=== PATIENT | female | born 1950 | race Caucasian/White ===

== ENCOUNTER → 2016-12-27 | Outpatient (CLI) | payer OTHER ==
[~2016-12-27] MED LIST: Albuterol 0.083% 2.5 MG/3 ML Neb Soln NEB ONE
== END | disposition home or self-care (01) ==
LOC: MW.RT 14:01
PROVIDERS: ATTEND Internal Medicine
DX: J44.9 Chronic obstructive pulmonary disease, unspecified (principal)
CPT/HCPCS: 94060; 94729

== ENCOUNTER 2018-02-22 21:58 | Emergency (ER) | payer MEDICARE, MEDICAID ==
[2018-02-22 22:35] VITALS: BP 128/68
--- NOTE | 2018-02-22 22:56 | EDM.PDOC ---
ED HPI GENERAL MEDICAL PROBLEM - General Chief Complaint: Back Pain or Injury Stated Complaint: SCIATIC NERVE PAIN Time Seen by Provider: 02/22/18 22:47 - History of Present Illness INITIAL COMMENTS - FREE TEXT/NARRATIVE: HISTORY AND PHYSICAL: History of present illness: Patient is a 68 show female history of sciatica presents a concern of right sided sciatic pain she denies trauma or other concern she did see her doctor for this earlier today who prescribed hydrocodone she presents today requesting diclofenac which worked with a prior episode. She denies numbness weakness inconsequential bowel or bladder trauma or other concern Review of systems: As per history of present illness and below otherwise all systems reviewed and negative. Past medical history: As per history of present illness and as reviewed below otherwise noncontributory. Surgical history: As per history of present illness and as reviewed below otherwise noncontributory. Social history: No reported history of drug or alcohol abuse. Family history: As per history of present illness and as reviewed below otherwise noncontributory. Physical exam: HEENT: Atraumatic, normocephalic, pupils reactive, negative for conjunctival pallor or scleral icterus, mucous membranes moist, throat clear, neck supple, nontender, trachea midline. Lungs: Clear to auscultation, breath sounds equal bilaterally, chest nontender. Heart: S1S2, regular, negative for clicks, rubs, or JVD. Abdomen: Soft, nondistended, nontender. Negative for masses or hepatosplenomegaly. Negative for costovertebral tenderness. Pelvis: Stable nontender. 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: Deferred. Rectal: Deferred. Extremities: Atraumatic, negative for cords or calf pain. Neurovascular unremarkable. Neuro: Awake, alert, oriented. Cranial nerves II through XII unremarkable. Cerebellum unremarkable. Motor and sensory unremarkable throughout. Exam nonfocal. Back: Patient has pain over her right sciatic notch she is able Sanner tells back on her heels deep tendon reflexes motor and sensory are normal Diagnostics: None Therapeutics: None Impression: # 1 sciatica Definitive disposition and diagnosis as appropriate pending reevaluation and review of above. lower back Pain Score (Numeric/FACES): 8 - Related Data Allergies Allergy/AdvReac Type Severity Reaction Status Date / Time egg Allergy Fever Verified 02/22/18 22:33 Home Meds: Home Meds guaiFENesin [Mucinex] 600 mg PO ASDIRECTED PRN 06/07/15 [History] Hydrocodone/Acetaminophen [Hydrocodon-Acetaminophen 5-325] 1 each PO Q6HR PRN [History] Past Medical History - Past Health History Medical/Surgical History: Denies Medical/Surgical History Other Respiratory History: Chronic coughin r/t smoking - Past Surgical History Other Female Surgeries/Procedures: ovarian cyst removal Social & Family History - Caffeine Use Caffeine Use: Reports: Coffee, Soda ED ROS GENERAL - Review of Systems Review Of Systems: ROS reveals no pertinent complaints other than HPI. ED EXAM, GENERAL - Physical Exam Exam: See Below (See dictation) Course - Vital Signs Last Recorded V/S: Last Vital Signs Temp 36.2 C 02/22/18 22:33 Pulse 75 02/22/18 22:33 Resp 18 02/22/18 22:33 BP 128/68 02/22/18 22:33 Pulse Ox 94 L 02/22/18 22:33 Departure - Departure Time of Disposition: 22:54 Disposition: Home, Self-Care 01 Condition: Good Clinical Impression: Sciatica - Discharge Information Referrals: Rocky Mitchell MD [Primary Care Provider] - Additional Instructions: The following information is given to patients seen in the emergency department who are being discharged to home. This information is to outline your options for follow-up care. We provide all patients seen in our emergency department with a follow-up referral. The need for follow-up, as well as the timing and circumstances, are variable depending upon the specifics of your emergency department visit. If you don't have a primary care physician on staff, we will provide you with a referral. We always advise you to contact your personal physician following an emergency department visit to inform them of the circumstance of the visit and for follow-up with them and/or the need for any referrals to a consulting specialist. The emergency department will also refer you to a specialist when appropriate. This referral assures that you have the opportunity for followup care with a specialist. All of these measure are taken in an effort to provide you with optimal care, which includes your followup. Under all circumstances we always encourage you to contact your private physician who remains a resource for coordinating your care. When calling for followup care, please make the office aware that this follow-up is from your recent emergency room visit. If for any reason you are refused follow-up, please contact the [facility] emergency department at and asked to speak to the emergency department charge nurse. Diclofenac as prescribed follow-up primary medical doctor return as needed as discussed
== END 2018-02-22 23:22 | disposition home or self-care (01) ==
LOC: MW.ED 21:58
DX: M54.41 Lumbago with sciatica, right side (principal); Z91.012 Allergy to eggs
CPT/HCPCS: 99282; 99283

== ENCOUNTER 2019-04-16 21:18 | Emergency (ER) | payer MEDICARE, MEDICAID ==
[2019-04-16 21:38] VITALS: BP 179/74; PULSE 74
[2019-04-16] MEDS ORDERED: Diazepam 2 MG Tab PO ONE (21:43)
[2019-04-16] MEDS ORDERED: Ketorolac 60 MG/2 ML SDV IM ONE (21:43)
--- NOTE | 2019-04-16 21:46 | EDM.PDOC ---
ED HPI GENERAL MEDICAL PROBLEM - General Chief Complaint: Back Pain or Injury Stated Complaint: PT HAS NERVE PAIN Time Seen by Provider: 04/16/19 21:32 - History of Present Illness INITIAL COMMENTS - FREE TEXT/NARRATIVE: HISTORY AND PHYSICAL: History of present illness: The patient is a 69-year-old female who has a history of episodic sciatic pain on the right and was last seen here on February 22, 2018 for similar symptoms and says that she has had on and off episodes and flareups for which she has used diclofenac and presents today with an exacerbation. She denies any recent trauma but does say that she frequently will do a lot of driving which may or may not have aggravated this. The pain is located in her right buttock area and radiates to her right upper leg but she has no weakness numbness or tingling in her legs and no midline back pain. She has no urinary frequency urgency or hematuria and no flank pain. She's had no bowel or bladder disturbances. The patient said that she got a refill on her diclofenac which has worked in the past and she took one dose today but it did not help so she is here for evaluation. She follows with Dr. Mitchell at [facility] and she has never had a lengthy discussion about her sciatica with him but says that she will do so tomorrow. She has no left-sided pain and no other systemic complaints. Is experiencing today is very similar to prior flareups and she feels more comfortable when she is leaning onto the left side and off her right butt area. Review of systems: As per history of present illness and below otherwise all systems reviewed and negative. Past medical history: As per history of present illness and as reviewed below otherwise noncontributory. Surgical history: As per history of present illness and as reviewed below otherwise noncontributory. Social history: No reported history of drug or alcohol abuse. Family history: As per history of present illness and as reviewed below otherwise noncontributory. Physical exam: General: Well-developed well-nourished thin female who is nontoxic and vital signs are noted by me. She ambulated into the ED without assistance. HEENT: Atraumatic, normocephalic, negative for conjunctival pallor or scleral icterus, mucous membranes moist, throat clear, neck supple, nontender, trachea midline. Lungs: Clear to auscultation, breath sounds equal bilaterally, chest nontender. Heart: S1S2, regular, negative for clicks, rubs, or JVD. Abdomen: Soft, nondistended, nontender. Negative for masses or hepatosplenomegaly. Negative for costovertebral tenderness. Pelvis: Stable nontender. 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: Deferred. Rectal: Deferred. Extremities: Atraumatic, negative for cords or calf pain. Neurovascular unremarkable. No pedal edema or leg asymmetry Neuro: Awake, alert, oriented. Cranial nerves II through XII unremarkable. Cerebellum unremarkable. Motor and sensory unremarkable throughout. Exam nonfocal. Tone is normal and patellar reflexes are +2 over 4 bilaterally. Dorsi and plantar flexion is intact bilaterally 5/5 inclusive of the great toe as is eversion and inversion of the feet Back: There are no midline step-offs in his defects of the thoracic or lumbar spine and no posterior rib tenderness. There is reproducible tenderness when I palpate the SI joint area and into the right butt cheek area. Diagnostics: [] Therapeutics: Toradol IM Valium by mouth I discussed with the patient and family at bedside that nerve pain/sciatic nerve pain is very challenging to manage here in the ED and that she might have to be on some long-term therapy as a preventive measure and to control her current pain. I will start her on some gabapentin but only give her 1 week supply and she needs to have a discussion with her provider in the clinic about further management of this nerve pain. I will also give her some Norflex for home to use as needed and to encourage her to also take her diclofenac Impression: Right sciatic nerve pain/sciatica, acute on chronic Definitive disposition and diagnosis as appropriate pending reevaluation and review of above. right lower back Pain Score (Numeric/FACES): 10 - Related Data Allergies Allergy/AdvReac Type Severity Reaction Status Date / Time egg Allergy Fever Verified 04/16/19 21:38 Home Meds: Home Meds guaiFENesin [Mucinex] 600 mg PO ASDIRECTED PRN 06/07/15 [History] Hydrocodone/Acetaminophen [Hydrocodon-Acetaminophen 5-325] 1 each PO Q6HR PRN [History] Past Medical History - Past Health History Medical/Surgical History: Denies Medical/Surgical History HEENT History: Reports: None Cardiovascular History: Reports: None Respiratory History: Reports: Other (See Below) Other Respiratory History: Chronic coughin r/t smoking Gastrointestinal History: Reports: None 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 History: Reports: None [employer]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: Musculoskeletal History: Reports: Back Pain, Chronic Neurological History: Reports: None Psychiatric History: Reports: None Endocrine/Metabolic History: Reports: None Hematologic History: Reports: None Immunologic History: Reports: None Oncologic (Cancer) History: Reports: None Dermatologic History: Reports: None - Infectious Disease History Infectious Disease History: Reports: None - Past Surgical History Other Female Surgeries/Procedures: ovarian cyst removal Social & Family History - Family History Family Medical History: Noncontributory - Caffeine Use Caffeine Use: Reports: Coffee, Soda ED ROS GENERAL - Review of Systems Review Of Systems: ROS reveals no pertinent complaints other than HPI. ED EXAM, GENERAL - Physical Exam Exam: See Below (See dictation) Course - Vital Signs Last Recorded V/S: Last Vital Signs Temp 36.0 C 04/16/19 21:29 Pulse 74 04/16/19 21:29 Resp 20 04/16/19 21:29 BP 179/74 H 04/16/19 21:29 Pulse Ox 97 04/16/19 21:29 - Orders/Labs/Meds Meds: Medications Discontinued Medications Generic Name Dose Route Start Last Admin Trade Name Freq PRN Reason Stop Dose Admin Diazepam 2 mg 04/16/19 21:43 Valium PO 04/16/19 21:44 ONETIME ONE Ketorolac Tromethamine 60 mg 04/16/19 21:43 Toradol IM 04/16/19 21:44 ONETIME ONE Departure - Departure Time of Disposition: 21:50 Disposition: Home, Self-Care 01 Condition: Good Clinical Impression: Sciatica Qualifiers: Laterality: right Qualified Code(s): M54.31 - Sciatica, right side - Discharge Information Referrals: PCP,None [Primary Care Provider] - Forms: ED Department Discharge Additional Instructions: The following information is given to patients seen in the emergency department who are being discharged to home. This information is to outline your options for follow-up care. We provide all patients seen in our emergency department with a follow-up referral. The need for follow-up, as well as the timing and circumstances, are variable depending upon the specifics of your emergency department visit. If you don't have a primary care physician on staff, we will provide you with a referral. We always advise you to contact your personal physician following an emergency department visit to inform them of the circumstance of the visit and for follow-up with them and/or the need for any referrals to a consulting specialist. The emergency department will also refer you to a specialist when appropriate. This referral assures that you have the opportunity for followup care with a specialist. All of these measure are taken in an effort to provide you with optimal care, which includes your followup. Under all circumstances we always encourage you to contact your private physician who remains a resource for coordinating your care. When calling for followup care, please make the office aware that this follow-up is from your recent emergency room visit. If for any reason you are refused follow-up, please contact the [facility] emergency department at and ask to speak to the emergency department charge nurse. [address] [place] [address] Please contact her provider in the clinic tomorrow to have further discussion and reevaluation of your sciatic nerve pain. Please try to stay off the area of your right but back as possible and use all medications as prescribed to you as well as the diclofenac you were ready have. Return to ER as needed and as discussed
== END 2019-04-16 22:10 | disposition home or self-care (01) ==
LOC: MW.ED 21:18
DX: M54.41 Lumbago with sciatica, right side (principal); Z91.012 Allergy to eggs
CPT/HCPCS: 96372; 99283; A9270; J1885

== ENCOUNTER 2019-06-01 11:56 | Inpatient (IN) | payer MEDICARE, MEDICAID ==
[2019-06-01] MEDS ORDERED: Albuterol/Ipratropium 3.0-0.5 MG/3 ML Neb Soln NEB ONE (12:51)
--- NOTE | 2019-06-01 13:09 | EDM.PDOC ---
ED HPI GENERAL MEDICAL PROBLEM - General Chief Complaint: Trauma Stated Complaint: FELL AND HURT RIB Time Seen by Provider: 06/01/19 12:06 Source of Information: Reports: Patient History Limitations: Reports: No Limitations - History of Present Illness INITIAL COMMENTS - FREE TEXT/NARRATIVE: HISTORY AND PHYSICAL: History of present illness: Patient is a 69-year-old female presents to the ED today with concern of left- sided rib pain and right knee pain after patient had fallen up the steps yesterday. Patient states that she was walking up her deck steps when she had tripped on the very last up and fell into a wooden chair and caught herself with the left side of her ribs. Patient states she also landed on the right knee and since then has had left rib pain and right knee pain. Patient states she does smoke cigarettes and smokes a few a day and has so for many years and has a history of COPD. Patient states she has continued to smoke despite this rib pain. Patient denies hitting her head or losing consciousness. Patient states she is a chronic alcohol drinker and has had 2 drinks today. Patient denies any other symptoms or concerns. Patient denies fever, chills, or cough. Denies headache, neck stiff ness, change in vision, syncope, or near syncope. Denies nausea, vomiting, abdominal pain, diarrhea, constipation, or dysuria. Has not noted any blood in urine or stool. Patient has been eating and drinking appropriately. Review of systems: As per history of present illness and below otherwise all systems reviewed and negative. Past medical history: As per history of present illness and as reviewed below otherwise noncontributory. Surgical history: As per history of present illness and as reviewed below otherwise noncontributory. Social history: See social history for further information Family history: As per history of present illness and as reviewed below otherwise noncontributory. Physical exam: General: Patient is alert, oriented, and in no acute distress. Patient sitting comfortably on wheelchair. HEENT: Atraumatic, normocephalic, pupils equal and reactive bilaterally, negative for conjunctival pallor or scleral icterus, mucous membranes moist, TMs normal bilaterally, throat clear, neck supple, nontender, trachea midline. No drooling or trismus noted. No meningeal signs. No hot potato voice noted. Lungs: Crepitus / grating sounds heard on the left lung lopez and diffuse wheezing to the right, breath sounds heard on right but limited on left, crepitus of the skin tissue overlying the left ribs with severe pain with palpation of generalized left sided ribs. Heart: S1S2, regular rate and rhythm without overt murmur Abdomen: Soft, nondistended, nontender. Negative for masses or hepatosplenomegaly. Negative for costovertebral tenderness. Pelvis: Stable nontender. 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: Deferred. Rectal: Deferred. Skin: Intact, warm, dry. No lesions or rashes noted. Extremities: Negative for cords or calf pain. Neurovascular unremarkable. No obvious deformity of the complete spine. No step-offs, crepitus, or point tenderness to the spinous process of complete spine. Patient has full range of motion of bilateral upper and lower extremities without pain, difficulty, or deficit. There is an abrasion over the right knee that is not bleeding and has already began scabbing over. Radial pulses are grossly intact bilaterally with capillary refill less than 2 seconds. Dorsalis pedis and posterior tibial pulses are grossly intact bilaterally with capillary refill is 2 seconds. Neuro: Awake, alert, oriented. Cranial nerves II through XII unremarkable. Cerebellum unremarkable. Motor and sensory unremarkable throughout. Exam nonfocal. Notes: Trauma alert was called upon arrival to the ED. Dr. Sandoval directly involved in patient care. Dr. Simpson, general surgery stonehand, consulted on patient and has come in to see the patient and will take her to the OR for chest tube placement. Voices understanding and is agreeable to plan of care. Denies any further questions or concerns at this time. Diagnostics: CBC, CMP, UA, PT/INR, PTT, left rib with chest x-ray, right knee x-ray, pelvic x -ray Therapeutics: Jonathan Impression: Pneumothorax, left Plan: 1. Transfer to the OR with Dr. Simpson, general surgery. Definitive disposition and diagnosis as appropriate pending reevaluation and review of above. left side Pain Score (Numeric/FACES): 3 - Related Data Allergies Allergy/AdvReac Type Severity Reaction Status Date / Time egg Allergy Fever Verified 04/16/19 21:38 Home Meds: Home Meds Albuterol Sulfate [Albuterol Sulfate Hfa] 2 puff INH ASDIRECTED PRN 04/16/19 [ History] Budesonide/Formoterol Fumarate [Symbicort 80-4.5 Mcg Inhaler] 2 puff INH BID 01/28 [History] Diclofenac Sodium [Voltaren] 75 mg PO BID 04/16/19 [History] Htn Med 04/16/19 [History] Past Medical History - Past Health History Medical/Surgical History: Denies Medical/Surgical History HEENT History: Reports: None Cardiovascular History: Reports: None, Hypertension Respiratory History: Reports: COPD, Other (See Below) Other Respiratory History: Chronic coughin r/t smoking Gastrointestinal History: Reports: None Other Gastrointestinal History: 3 abdominal aneurysms per PT 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 History: Reports: 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: Musculoskeletal History: Reports: Back Pain, Chronic Other Musculoskeletal History: sciatica Neurological History: Reports: None Psychiatric History: Reports: None Endocrine/Metabolic History: Reports: None Hematologic History: Reports: None Immunologic History: Reports: None Oncologic (Cancer) History: Reports: None Dermatologic History: Reports: None - Infectious Disease History Infectious Disease History: Reports: Chicken Pox, Measles, Mumps - Past Surgical History Head Surgeries/Procedures: Reports: None Other Female Surgeries/Procedures: ovarian cyst removal Social & Family History - Family History Family Medical History: Noncontributory - Tobacco Use Smoking Status *Q: Current Every Day Smoker Years of Tobacco use: 4 Packs/Tins Daily: 40 - Caffeine Use Caffeine Use: Reports: Coffee, Soda - Alcohol Use Days Per Week of Alcohol Use: 7 Number of Drinks Per Day: 5 Total Drinks Per Week: 35 - Recreational Drug Use Recreational Drug Use: Yes Recreational Drug Type: Reports: Marijuana/Hashish Recreational Drug Use Frequency: Socially Review of Systems - Review of Systems Review Of Systems: ROS reveals no pertinent complaints other than HPI. ED EXAM, GENERAL - Physical Exam Exam: See Below (See dictation) Course - Vital Signs Last Recorded V/S: Last Vital Signs Temp 36.6 C 06/01/19 12:10 Pulse 75 06/01/19 13:15 Resp 22 H 06/01/19 13:15 BP 176/87 H 06/01/19 13:15 Pulse Ox 95 06/01/19 13:15 - Orders/Labs/Meds Orders: Active Orders 24 hr Category Date Time Status Admission Status [Patient Status] [ADT] Stat ADT 06/01/19 13:09 Active EKG Documentation Completion [RC] STAT Care 06/01/19 12:24 Active RT Aerosol Therapy [RC] ASDIRECTED Care 06/01/19 12:51 Active UA RFX TOMMY AND CULT IF INDIC [URIN] Stat Lab 06/01/19 12:24 Ordered Labs: Laboratory Tests 06/01/19 06/01/19 06/01/19 Range/Units 12:44 12:44 12:44 WBC 8.81 (4.0-11.0) K/uL RBC 4.04 L (4.30-5.90) M/uL Hgb 13.1 (12.0-16.0) g/dL Hct 39.5 (36.0-46.0) % MCV 97.8 (80.0-98.0) fL MCH 32.4 H (27.0-32.0) pg MCHC 33.2 (31.0-37.0) g/dL RDW Std Deviation 48.4 (28.0-62.0) fl RDW Coeff of Dinora 14 (11.0-15.0) % Plt Count 239 (150-400) K/uL MPV 9.30 (7.40-12.00) fL Neut % (Auto) 80.2 H (48.0-80.0) % Lymph % (Auto) 9.2 L (16.0-40.0) % [place] % (Auto) 9.2 (0.0-15.0) % Eos % (Auto) 1.2 (0.0-7.0) % Baso % (Auto) 0.2 (0.0-1.5) % Neut # (Auto) 7.1 H (1.4-5.7) K/uL Lymph # (Auto) 0.8 (0.6-2.4) K/uL [place] # (Auto) 0.8 (0.0-0.8) K/uL Eos # (Auto) 0.1 (0.0-0.7) K/uL Baso # (Auto) 0.0 (0.0-0.1) K/uL Nucleated RBC % 0.0 /100WBC Nucleated RBCs # 0 K/uL INR 0.95 APTT 23.3 (18.6-31.3) SEC Sodium 141 (136-145) mmol/L Potassium 4.4 (3.5-5.1) mmol/L Chloride 103 (98-107) mmol/L Carbon Dioxide 26.4 (21.0-32.0) mmol/L BUN 21 H (7.0-18.0) mg/dL Creatinine 0.9 (0.6-1.0) mg/dL Est Cr Clr Drug Dosing 47.97 mL/min Estimated GFR (MDRD) > 60.0 ml/min Glucose 141 H (74-106) mg/dL Calcium 9.7 (8.5-10.1) mg/dL Total Bilirubin 0.5 (0.2-1.0) mg/dL AST 41 H (15-37) IU/L ALT 38 (14-63) IU/L Alkaline Phosphatase 109 (46-116) U/L Total Protein 7.8 (6.4-8.2) g/dL Albumin 3.5 (3.4-5.0) g/dL Globulin 4.3 H (2.6-4.0) g/dL Albumin/Globulin Ratio 0.8 L (0.9-1.6) Ethyl Alcohol mg/dL 06/01/19 Range/Units 12:44 WBC (4.0-11.0) K/uL RBC (4.30-5.90) M/uL Hgb (12.0-16.0) g/dL Hct (36.0-46.0) % MCV (80.0-98.0) fL MCH (27.0-32.0) pg MCHC (31.0-37.0) g/dL RDW Std Deviation (28.0-62.0) fl RDW Coeff of Dinora (11.0-15.0) % Plt Count (150-400) K/uL MPV (7.40-12.00) fL Neut % (Auto) (48.0-80.0) % Lymph % (Auto) (16.0-40.0) % [place] % (Auto) (0.0-15.0) % Eos % (Auto) (0.0-7.0) % Baso % (Auto) (0.0-1.5) % Neut # (Auto) (1.4-5.7) K/uL Lymph # (Auto) (0.6-2.4) K/uL [place] # (Auto) (0.0-0.8) K/uL Eos # (Auto) (0.0-0.7) K/uL Baso # (Auto) (0.0-0.1) K/uL Nucleated RBC % /100WBC Nucleated RBCs # K/uL INR APTT (18.6-31.3) SEC Sodium (136-145) mmol/L Potassium (3.5-5.1) mmol/L Chloride (98-107) mmol/L Carbon Dioxide (21.0-32.0) mmol/L BUN (7.0-18.0) mg/dL Creatinine (0.6-1.0) mg/dL Est Cr Clr Drug Dosing mL/min Estimated GFR (MDRD) ml/min Glucose (74-106) mg/dL Calcium (8.5-10.1) mg/dL Total Bilirubin (0.2-1.0) mg/dL AST (15-37) IU/L ALT (14-63) IU/L Alkaline Phosphatase (46-116) U/L Total Protein (6.4-8.2) g/dL Albumin (3.4-5.0) g/dL Globulin (2.6-4.0) g/dL Albumin/Globulin Ratio (0.9-1.6) Ethyl Alcohol 89 mg/dL Meds: Medications Discontinued Medications Generic Name Dose Route Start Last Admin Trade Name Freq PRN Reason Stop Dose Admin Albuterol/Ipratropium 3 ml 06/01/19 12:51 06/01/19 12:56 Duoneb 3.0-0.5 Mg/3 Ml NEB 06/01/19 12:52 3 ml ONETIME ONE Administration Departure - Departure Time of Disposition: 13:33 Disposition: Still A Patient 30 Clinical Impression: Pneumothorax Qualifiers: Pneumothorax type: unspecified pneumothorax Qualified Code(s): J93.9 - Pneumothorax, unspecified - Discharge Information - My Orders Last 24 Hours: My Active Orders 06/01/19 12:24 EKG Documentation Completion [RC] STAT UA RFX TOMMY AND CULT IF INDIC [URIN] Stat 06/01/19 12:51 RT Aerosol Therapy [RC] ASDIRECTED 06/01/19 13:09 Admission Status [Patient Status] [ADT] Stat - Assessment/Plan Last 24 Hours: My Active Orders 06/01/19 12:24 EKG Documentation Completion [RC] STAT UA RFX TOMMY AND CULT IF INDIC [URIN] Stat 06/01/19 12:51 RT Aerosol Therapy [RC] ASDIRECTED 06/01/19 13:09 Admission Status [Patient Status] [ADT] Stat
[2019-06-01 13:13] LABS: BLOOD UREA NITROGEN,BUN 21 mg/dL (7.0-18.0); CARBON DIOXIDE,CO2 26.4 mmol/L (21.0-32.0); CHLORIDE,CL 103 mmol/L (98-107); GLUCOSE RANDOM 141 mg/dL (74-106); POTASSIUM,K 4.4 mmol/L (3.5-5.1); SODIUM,NA 141 mmol/L (136-145)
--- NOTE | 2019-06-01 13:27 | CR ---
Right knee: AP and lateral views of the right knee were obtained. Comparison: No previous knee exam. Medial joint appears to be slightly narrowed. Lateral joint space is preserved. No joint effusion is seen. No fracture or other bony abnormality is identified. Impression: 1. Slight medial joint space narrowing suggested. 2. Nothing acute is seen on two-view right knee exam. Diagnostic code #2 MTDD
--- NOTE | 2019-06-01 13:27 | CR ---
Pelvis: AP view of the pelvis was obtained. Comparison: No prior pelvis exam. Joint spaces within both hips are preserved. Sacroiliac joints are within normal limits. No fracture or other bony abnormality is seen. Impression: Nothing acute is seen on AP pelvis exam. Diagnostic code #1 MTDD
--- NOTE | 2019-06-01 13:28 | CR ---
Chest and left ribs: Frontal view of the chest was obtained as well as two views left ribs. Extensive subcutaneous air is noted within the left chest extending into the left shoulder and left neck. Small pneumothorax is seen measuring around 20% to 30%. I suspect that there are some poorly seen rib fractures given the findings. Right lung is clear. Heart size and mediastinum are normal. Impression: 1. Small pneumothorax measuring approximately 20% to 30%. 2. Extensive subcutaneous air within the left chest and extending into the left shoulder and left neck. 3. Probable left-sided rib fractures which are poorly seen. Diagnostic code #5 MTDD
[2019-06-01] MEDS ORDERED: Lidocaine 1% with EPINEPHrine 1:100,000 20 ML MDV ONE (14:04)
--- NOTE | 2019-06-01 14:06 | PCM.HP.2 ---
H&P History of Present Illness - General Date of Service: 06/01/19 Admit Problem/Dx: Admission Diagnosis/Problem Admission Diagnosis/Problem Pneumothorax Source of Information: Patient History Limitations: Reports: No Limitations - History of Present Illness Initial Comments - Free Text/Narative: Patient is a 69 year old female who presents one day after a fall at home. She tripped on a rug coming into her come and fell onto the corner of a chair. She hit the left lateral lower aspect of her chest. She came in today due to pain. She complains of shortness of breath and pain on the left side. Her vitals were stable on arrival other than being hypertensive. Her heart rate is normal. Her O2 sats are 95% on room air. On physical exam she has crepitus on the chest wall on the left side and no breath sounds on the left. CXR shows a pneumothorax and extensive subcutaneous air. She denies abdominal pain. She complains of left knee pain. She denies any LOC. She is a long time smoker with COPD and a chronic alcoholic. Her etoh level is 89 today. left side Pain Score (Numeric/FACES): 3 - Related Data Allergies/Adverse Reactions: Allergies Allergy/AdvReac Type Severity Reaction Status Date / Time egg Allergy Fever Verified 04/16/19 21:38 Home Medications: Home Meds Albuterol [Ventolin HFA] 2 inh IH Q4H PRN 06/01/19 [History] Budesonide/Formoterol [Symbicort 160-4.5 MCG] 2 inh IH BID 06/01/19 [History] Olmesartan [Benicar] 20 mg PO DAILY 06/01/19 [History] amLODIPine Besylate [Amlodipine Besylate] 5 mg PO DAILY 06/01/19 [History] atorvaSTATin Calcium [Atorvastatin Calcium] 20 mg PO DAILY 06/01/19 [History] buPROPion HCl [Wellbutrin SR] 150 mg PO BID 06/01/19 [History] Past Medical History - Past Health History Medical/Surgical History: Denies Medical/Surgical History HEENT History: Reports: None Cardiovascular History: Reports: None, Hypertension Respiratory History: Reports: COPD, Other (See Below) Other Respiratory History: Chronic coughin r/t smoking Gastrointestinal History: Reports: None Other Gastrointestinal History: 3 abdominal aneurysms per PT 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 History: Reports: None 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: Musculoskeletal History: Reports: Back Pain, Chronic Other Musculoskeletal History: sciatica Neurological History: Reports: None Psychiatric History: Reports: None Endocrine/Metabolic History: Reports: None Hematologic History: Reports: None Immunologic History: Reports: None Oncologic (Cancer) History: Reports: None Dermatologic History: Reports: None - Infectious Disease History Infectious Disease History: Reports: Chicken Pox, Measles, Mumps - Past Surgical History Head Surgeries/Procedures: Reports: None Other Female Surgeries/Procedures: ovarian cyst removal Social & Family History - Family History Family Medical History: Noncontributory - Tobacco Use Smoking Status *Q: Current Every Day Smoker Years of Tobacco use: 4 Packs/Tins Daily: 40 - Caffeine Use Caffeine Use: Reports: Coffee, Soda - Alcohol Use Alcohol Use History: Yes Days Per Week of Alcohol Use: 7 Number of Drinks Per Day: 5 Total Drinks Per Week: 35 Alcohol Use in Last Twelve Months: Yes Alcohol Use Frequency: Daily - Recreational Drug Use Recreational Drug Use: Yes Recreational Drug Type: Reports: Marijuana/Hashish Recreational Drug Use Frequency: Socially H&P Review of Systems - Review of Systems: Review Of Systems: ROS reveals no pertinent complaints other than HPI. Exam - Exam Exam: See Below - Vital Signs Vital Signs: Last Vital Signs Temp 36.6 C 06/01/19 12:10 Pulse 72 06/01/19 13:45 Resp 18 06/01/19 13:45 BP 178/90 H 06/01/19 13:45 Pulse Ox 99 06/01/19 13:45 Weight: 53.07 kg - Exam General: Alert, Oriented, Cooperative HEENT: Conjunctiva Clear, EACs Clear, EOMI, Mucosa Moist & [place], Nares Patent, Normal Nasal Septum, Posterior Pharynx Clear, Pupils Equal, Pupils Reactive Neck: Supple, Trachea Midline Lungs: Normal Respiratory Effort, Other (Left chest wall crepitus. Large bruise on left lateral lower side. No breath sounds throughout left chest wall lopez. ) Cardiovascular: Regular Rate, Regular Rhythm GI/Abdominal Exam: Soft, Non-Tender, No Distention, No Mass Back Exam: Normal Inspection, Full Range of Motion Skin: Warm, Dry, Intact Neuro Extensive - Mental Status: Alert, Oriented x3 Psychiatric: Alert, Normal Affect, Normal Mood - Patient Data Lab Results Last 24 hrs: Laboratory Results - last 24 hr 06/01/19 06/01/19 06/01/19 Range/Units 12:44 12:44 12:44 WBC 8.81 (4.0-11.0) K/uL RBC 4.04 L (4.30-5.90) M/uL Hgb 13.1 (12.0-16.0) g/dL Hct 39.5 (36.0-46.0) % MCV 97.8 (80.0-98.0) fL MCH 32.4 H (27.0-32.0) pg MCHC 33.2 (31.0-37.0) g/dL RDW Std Deviation 48.4 (28.0-62.0) fl RDW Coeff of [place] 14 (11.0-15.0) % Plt Count 239 (150-400) K/uL MPV 9.30 (7.40-12.00) fL Neut % (Auto) 80.2 H (48.0-80.0) % Lymph % (Auto) 9.2 L (16.0-40.0) % [place] % (Auto) 9.2 (0.0-15.0) % Eos % (Auto) 1.2 (0.0-7.0) % Baso % (Auto) 0.2 (0.0-1.5) % Neut # (Auto) 7.1 H (1.4-5.7) K/uL Lymph # (Auto) 0.8 (0.6-2.4) K/uL [place] # (Auto) 0.8 (0.0-0.8) K/uL Eos # (Auto) 0.1 (0.0-0.7) K/uL Baso # (Auto) 0.0 (0.0-0.1) K/uL Nucleated RBC % 0.0 /100WBC Nucleated RBCs # 0 K/uL INR 0.95 APTT 23.3 (18.6-31.3) SEC Sodium 141 (136-145) mmol/L Potassium 4.4 (3.5-5.1) mmol/L Chloride 103 (98-107) mmol/L Carbon Dioxide 26.4 (21.0-32.0) mmol/L BUN 21 H (7.0-18.0) mg/dL Creatinine 0.9 (0.6-1.0) mg/dL Est Cr Clr Drug Dosing 47.97 mL/min Estimated GFR (MDRD) > 60.0 ml/min Glucose 141 H (74-106) mg/dL Calcium 9.7 (8.5-10.1) mg/dL Total Bilirubin 0.5 (0.2-1.0) mg/dL AST 41 H (15-37) IU/L ALT 38 (14-63) IU/L Alkaline Phosphatase 109 (46-116) U/L Total Protein 7.8 (6.4-8.2) g/dL Albumin 3.5 (3.4-5.0) g/dL Globulin 4.3 H (2.6-4.0) g/dL Albumin/Globulin Ratio 0.8 L (0.9-1.6) Ethyl Alcohol mg/dL 06/01/19 Range/Units 12:44 WBC (4.0-11.0) K/uL RBC (4.30-5.90) M/uL Hgb (12.0-16.0) g/dL Hct (36.0-46.0) % MCV (80.0-98.0) fL MCH (27.0-32.0) pg MCHC (31.0-37.0) g/dL RDW Std Deviation (28.0-62.0) fl RDW Coeff of [place] (11.0-15.0) % Plt Count (150-400) K/uL MPV (7.40-12.00) fL Neut % (Auto) (48.0-80.0) % Lymph % (Auto) (16.0-40.0) % [place] % (Auto) (0.0-15.0) % Eos % (Auto) (0.0-7.0) % Baso % (Auto) (0.0-1.5) % Neut # (Auto) (1.4-5.7) K/uL Lymph # (Auto) (0.6-2.4) K/uL [place] # (Auto) (0.0-0.8) K/uL Eos # (Auto) (0.0-0.7) K/uL Baso # (Auto) (0.0-0.1) K/uL Nucleated RBC % /100WBC Nucleated RBCs # K/uL INR APTT (18.6-31.3) SEC Sodium (136-145) mmol/L Potassium (3.5-5.1) mmol/L Chloride (98-107) mmol/L Carbon Dioxide (21.0-32.0) mmol/L BUN (7.0-18.0) mg/dL Creatinine (0.6-1.0) mg/dL Est Cr Clr Drug Dosing mL/min Estimated GFR (MDRD) ml/min Glucose (74-106) mg/dL Calcium (8.5-10.1) mg/dL Total Bilirubin (0.2-1.0) mg/dL AST (15-37) IU/L ALT (14-63) IU/L Alkaline Phosphatase (46-116) U/L Total Protein (6.4-8.2) g/dL Albumin (3.4-5.0) g/dL Globulin (2.6-4.0) g/dL Albumin/Globulin Ratio (0.9-1.6) Ethyl Alcohol 89 mg/dL Result Diagrams: 06/01/19 12:44 06/01/19 12:44 - Problem List (1) Fall SNOMED Code(s): 6589539, 248709661 ICD Code: W19.XXXA - UNSPECIFIED FALL, INITIAL ENCOUNTER Status: Acute Current Visit: Yes (2) Pneumothorax SNOMED Code(s): 64913767 ICD Code: J93.9 - PNEUMOTHORAX, UNSPECIFIED Status: Acute Current Visit: Yes Qualifiers: Pneumothorax type: unspecified pneumothorax Qualified Code(s): J93.9 - Pneumothorax, unspecified Problem List Initiated/Reviewed/Updated: Yes Orders Last 24hrs: Active Orders 24 hr Category Date Time Status Admission Status [Patient Status] [ADT] Stat ADT 06/01/19 13:09 Active EKG Documentation Completion [RC] STAT Care 06/01/19 12:24 Active RT Aerosol Therapy [RC] ASDIRECTED Care 06/01/19 12:51 Active UA RFX TOMMY AND CULT IF INDIC [URIN] Stat Lab 06/01/19 12:24 Ordered Assessment/Plan Comment:: She needs to have a chest tube placed to relieve her pneumothorax. Given the patient's moderate to severe COPD, I will perform this in the OR where I can have her monitored by anesthesia while I place the chest tube. We discussed the procedure, expected perioperative course and risks including bleeding infection or damage to surrounding structures. She verbalized understanding and wishes to proceed. She may need to be admitted to the ICU afterwards for close monitoring of her breathing and monitoring for alcohol withdrawl precautions. Will get a CT chest abdomen and pelvis afterwards to rule out intra-abdominal injury.
--- NOTE | 2019-06-01 14:08 | PCM.PREANE ---
Preanesthetic Assessment - Anesthesia/Transfusion/Family Hx Anesthesia History: Prior Anesthesia Without Reaction Family History of Anesthesia Reaction: No Transfusion History: Unknown - Review of Systems General: Weakness Pulmonary: Shortness of Breath, Other - Physical Assessment NPO Status Date: 05/31/19 Vital Signs: Last Vital Signs Temp 36.6 C 06/01/19 12:10 Pulse 72 06/01/19 13:45 Resp 18 06/01/19 13:45 BP 178/90 H 06/01/19 13:45 Pulse Ox 99 06/01/19 13:45 Height: 5 ft 2 in Weight: 53.07 kg ASA Class: 3E Mental Status: Alert & Oriented x3 Airway Class: Mallampati = 2 Dentition: Reports: Normal Dentition Lungs: Other (Right sided clear to ascultation, Left side no breath sounds) - Lab Values: Laboratory Last Values WBC 8.81 K/uL (4.0-11.0) 06/01/19 12:44 RBC 4.04 M/uL (4.30-5.90) L 06/01/19 12:44 Hgb 13.1 g/dL (12.0-16.0) 06/01/19 12:44 Hct 39.5 % (36.0-46.0) 06/01/19 12:44 MCV 97.8 fL (80.0-98.0) 06/01/19 12:44 MCH 32.4 pg (27.0-32.0) H 06/01/19 12:44 MCHC 33.2 g/dL (31.0-37.0) 06/01/19 12:44 RDW Std Deviation 48.4 fl (28.0-62.0) 06/01/19 12:44 RDW Coeff of Dinora 14 % (11.0-15.0) 06/01/19 12:44 Plt Count 239 K/uL (150-400) 06/01/19 12:44 MPV 9.30 fL (7.40-12.00) 06/01/19 12:44 Neut % (Auto) 80.2 % (48.0-80.0) H 06/01/19 12:44 Lymph % (Auto) 9.2 % (16.0-40.0) L 06/01/19 12:44 [place] % (Auto) 9.2 % (0.0-15.0) 06/01/19 12:44 Eos % (Auto) 1.2 % (0.0-7.0) 06/01/19 12:44 Baso % (Auto) 0.2 % (0.0-1.5) 06/01/19 12:44 Neut # (Auto) 7.1 K/uL (1.4-5.7) H 06/01/19 12:44 Lymph # (Auto) 0.8 K/uL (0.6-2.4) 06/01/19 12:44 [place] # (Auto) 0.8 K/uL (0.0-0.8) 06/01/19 12:44 Eos # (Auto) 0.1 K/uL (0.0-0.7) 06/01/19 12:44 Baso # (Auto) 0.0 K/uL (0.0-0.1) 06/01/19 12:44 Nucleated RBC % 0.0 /100WBC 06/01/19 12:44 Nucleated RBCs # 0 K/uL 06/01/19 12:44 INR 0.95 06/01/19 12:44 APTT 23.3 SEC (18.6-31.3) 06/01/19 12:44 Sodium 141 mmol/L (136-145) 06/01/19 12:44 Potassium 4.4 mmol/L (3.5-5.1) 06/01/19 12:44 Chloride 103 mmol/L (98-107) 06/01/19 12:44 Carbon Dioxide 26.4 mmol/L (21.0-32.0) 06/01/19 12:44 BUN 21 mg/dL (7.0-18.0) H 06/01/19 12:44 Creatinine 0.9 mg/dL (0.6-1.0) 06/01/19 12:44 Est Cr Clr Drug Dosing 47.97 mL/min 06/01/19 12:44 Estimated GFR (MDRD) > 60.0 ml/min 06/01/19 12:44 Glucose 141 mg/dL (74-106) H 06/01/19 12:44 Calcium 9.7 mg/dL (8.5-10.1) 06/01/19 12:44 Total Bilirubin 0.5 mg/dL (0.2-1.0) 06/01/19 12:44 AST 41 IU/L (15-37) H 06/01/19 12:44 ALT 38 IU/L (14-63) 06/01/19 12:44 Alkaline Phosphatase 109 U/L (46-116) 06/01/19 12:44 Total Protein 7.8 g/dL (6.4-8.2) 06/01/19 12:44 Albumin 3.5 g/dL (3.4-5.0) 06/01/19 12:44 Globulin 4.3 g/dL (2.6-4.0) H 06/01/19 12:44 Albumin/Globulin Ratio 0.8 (0.9-1.6) L 06/01/19 12:44 Ethyl Alcohol 89 mg/dL 06/01/19 12:44 - Allergies Allergies/Adverse Reactions: Allergies Allergy/AdvReac Type Severity Reaction Status Date / Time egg Allergy Fever Verified 04/16/19 21:38 - Anesthesia Plan Pre-Op Medication Ordered: None - Acknowledgements Anesthesia Type Planned: MAC Pt an Appropriate Candidate for the Planned Anesthesia: Yes Alternatives and Risks of Anesthesia Discussed w Pt/Guardian: Yes Pt/Guardian Understands and Agrees with Anesthesia Plan: Yes Additional Comments: Patient's NPO status only clear liquids since this morning. 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: Musculoskeletal History: Reports: Back Pain, Chronic Other Musculoskeletal History: sciatica Neurological History: Reports: None Psychiatric History: Reports: None Endocrine/Metabolic History: Reports: None Hematologic History: Reports: None Immunologic History: Reports: None Oncologic (Cancer) History: Reports: None Dermatologic History: Reports: None - Infectious Disease History Infectious Disease History: Reports: Chicken Pox, Measles, Mumps - Past Surgical History Head Surgeries/Procedures: Reports: None Other Female Surgeries/Procedures: ovarian cyst removal - SUBSTANCE USE Smoking Status *Q: Current Every Day Smoker Tobacco Use Within Last Twelve Months: Cigarettes Days Per Week of Alcohol Use: 7 Number of Drinks Per Day: 5 Total Drinks Per Week: 35 Recreational Drug Use History: Yes Recreational Drug Type: Reports: Marijuana/Hashish - HOME MEDS Home Medications: Home Meds Albuterol [Ventolin HFA] 2 inh IH Q4H PRN 06/01/19 [History] Budesonide/Formoterol [Symbicort 160-4.5 MCG] 2 inh IH BID 06/01/19 [History] Olmesartan [Benicar] 20 mg PO DAILY 06/01/19 [History] amLODIPine Besylate [Amlodipine Besylate] 5 mg PO DAILY 06/01/19 [History] atorvaSTATin Calcium [Atorvastatin Calcium] 20 mg PO DAILY 06/01/19 [History] buPROPion HCl [Wellbutrin SR] 150 mg PO BID 06/01/19 [History] - CURRENT (IN HOUSE) MEDS Current Meds: Current Medications Discontinued Medications Albuterol/Ipratropium (Duoneb 3.0-0.5 Mg/3 Ml) 3 ml NEB ONETIME ONE Stop: 06/01/19 12:52 Last Admin: 06/01/19 12:56 Dose: 3 ml
[2019-06-01] MEDS ORDERED: Lidocaine 2% 5 ML SDV ONE (14:18)
[2019-06-01] MEDS ORDERED: Ketamine 500 mg/10 ML MDV ONE (14:18)
[2019-06-01] MEDS ORDERED: Propofol 200 MG/20 ML SDV ONE (14:19)
[2019-06-01] MEDS ORDERED: ceFAZolin 1 GM Vial ONE (14:50)
[2019-06-01] MEDS ORDERED: fentaNYL 100 MCG/2 ML SDV ONE (15:23)
[2019-06-01] MEDS ORDERED: Naloxone 0.4 MG/ML Syringe IVPUSH PRN (15:30)
[2019-06-01] MEDS ORDERED: Morphine PF 30 MG/30 ML PCA Vial IV SCH (15:30)
[2019-06-01] MEDS ORDERED: Ondansetron 4 MG/2 ML SDV IVPUSH PRN ×2 (15:30→15:35)
[2019-06-01] MEDS ORDERED: diphenhydrAMINE 50 MG/ML SDV IVPUSH PRN (15:30)
[2019-06-01] MEDS ORDERED: diphenhydrAMINE 25 MG Cap PO PRN (15:30)
[2019-06-01] MEDS ORDERED: Ketorolac 30 MG/ML SDV ONE (15:32)
[2019-06-01] MEDS ORDERED: Cyclobenzaprine 5 MG Tab PO PRN (15:32)
[2019-06-01] MEDS ORDERED: Sodium Chloride 0.9% 2.5 ML Syringe FLUSH PRN (15:35)
[2019-06-01] MEDS ORDERED: Promethazine 25 MG/ML SDV IM PRN (15:35)
[2019-06-01] MEDS ORDERED: Sodium Chloride 0.9% 10 ML SDV IV PRN (15:35)
[2019-06-01] MEDS ORDERED: Sodium Chloride 0.9% 10 ML Syringe FLUSH PRN (15:35)
[2019-06-01] MEDS ORDERED: Acetaminophen 325 MG Tab PO SCH (15:45)
[2019-06-01] MEDS ORDERED: Sodium Chloride 0.9% 1,000 ML IV SCH (15:45)
--- NOTE | 2019-06-01 15:47 | PCM.OPNOTE ---
- General Post-Op/Procedure Note Date of Surgery/Procedure: 06/01/19 Operative Procedure(s): Left chest tube placement Findings: Left pneumothorax. 20 Fr chest tube placed at 16 cm at the skin Pre Op Diagnosis: Traumatic pneumothorax Post-Op Diagnosis: same Anesthesia Technique: MAC Primary Surgeon: Ifeoma Simpson EBL in mLs: 5 Condition: Fair
[2019-06-01] MEDS ORDERED: LORazepam 1 MG Tab PO SCH (16:00)
--- NOTE | 2019-06-01 16:04 | PCM.POSTAN ---
POST ANESTHESIA ASSESSMENT - MENTAL STATUS Mental Status: Alert, Oriented - VITAL SIGNS Vital Signs: Last Vital Signs Temp 96.5 C H 06/01/19 15:19 Pulse 72 06/01/19 15:45 Resp 12 06/01/19 15:45 BP 195/86 H 06/01/19 15:45 Pulse Ox 100 06/01/19 15:45 - RESPIRATORY Respiratory Status: Respiratory Rate WNL, Airway Patent, O2 Saturation Stable, Supplemental Oxygen - CARDIOVASCULAR CV Status: Pulse Rate WNL - GASTROINTESTINAL GI Status: No Symptoms - POST OP HYDRATION Hydration Status: Adequate & Stable - OBSERVATIONS Free Text/Narrative:: Patient post left chest tube insertion. Patient stable to be discharged to ICU.
[2019-06-01] MEDS ORDERED: Pneumococcal 23-Valent Conjugate Vaccine 0.5 ML Syringe IM ONE (16:40)
[2019-06-01] MEDS ORDERED: Pneumococcal Polyvalent-23 Vaccine 0.5 ML SDV IM ONE (16:45)
--- NOTE | 2019-06-01 17:09 | CR ---
HISTORY: Status post chest tube placement. COMPARISON: None available FINDINGS: A portable erect AP view of the chest was obtained at 1526 hours. A left-sided chest tube has been placed with its tip in satisfactory position in the left apex. There is a small left lateral apical pneumothorax, less than 10 percent of the thoracic volume. There is prominent subcutaneous air in the left chest wall. The right lung is clear and there is no sign of pneumothorax on the right. There is no sign of a pleural effusion on either side. The heart is normal in size. The mediastinum is normal in appearance. The osseous structures are normal in appearance for the patient`s age. IMPRESSION: Satisfactory position of a left-sided chest tube with tip in the apex. Less than 10 percent left apical pneumothorax. Prominent left chest wall subcutaneous emphysema. Dictated by Thomas Zayas MD @ Jun 01 2019 5:05PM Signed by Dr. Thomas Zayas @ Jun 01 2019 5:08PM
[2019-06-01] MEDS: Ketorolac 15 MG/ML SDV IVPUSH SCH ×2 (17:51→22:37)
[2019-06-01] MEDS: Albuterol/Ipratropium 3.0-0.5 MG/3 ML Neb Soln NEB SCH ×2 (18:20→21:12)
[2019-06-01] MEDS: Acetaminophen 325 MG Tab PO SCH (18:47)
--- NOTE | 2019-06-01 18:54 | PN ---
THC Physician - Brief Progress [id number]/20/2019 18:47[facility] Elissa Fortune, [place] - [facility] - SARINAN SHARON COCHRANCjDate of Service 06/01/2019 18:47HPI/Events of Note eICU Admission [id number] F with PMH of significant COPD and ETOH intake (5 shooters/day), uncl ear last intake with ETOH level 89 today, admitted after recent fall causing left sided chest and rig ht knee pain. CXR showed 20-30% pneumothorax on left with subcutaneous air. Chest tube placed by lorena diego. Seen on camera, comfortable. Discussed with bedside nurse and reviewed notes in the EMR.eICU Recommendations:1. Chest tube care per surgery, pain control.2. Check Mg, Phos with ETOH misuse.3. CT chest and pelvis ordered with fall, will add head CT.4. Neurochecks and CIWA per protocol with PRN Ativan.5. Banana bag 1L + MVI + Folic acid + thiamine.6. SCDs for DVT prophylaxis.7. Nicotine patch 21mg daily.Thank you for allowing us to particpate in the care of your patient.Interventions In termediate-Communication with other healthcare providers and/or family, Pain - evaluation and managem ent, Respiratory distress - evaluation and management
[2019-06-01] MEDS ORDERED: MVI, Adult with Vitamin K 10 ML, Thiamine 100 MG, Folic Acid 1 MG in Sodium Chloride 0.... IV ONE ×4 (19:00)
[2019-06-01] MEDS: Folic Acid 1 MG Tab PO SCH (19:34)
[2019-06-01] MEDS: Thiamine 100 MG Tab PO SCH (19:34)
[2019-06-01] MEDS: Nicotine 21 MG/24 Hr Patch TRDERM SCH (19:34)
[2019-06-01] MEDS ORDERED: Iopamidol 755 MG/ML 500 ML Multipack Bottle IVPUSH STA (20:30)
--- NOTE | 2019-06-01 21:03 | CT ---
INDICATION: Fall, chest tube placement earlier today TECHNIQUE: Head CT without contrast. COMPARISON: None FINDINGS: CSF spaces: Within normal limits for age. Brain parenchyma: There are nonspecific low attenuation white matter changes consistent with chronic microvascular disease. No sign of mass, hemorrhage, or midline shift. Skull base and calvarium: The visualized paranasal sinuses and mastoid air cells demonstrate no acute or significant findings. The visualized orbits are grossly unremarkable. No skull fractures. There is intracranial atherosclerosis. There is soft tissue air in the left neck. IMPRESSION: 1. No acute intracranial hemorrhage or skull fracture. 2. Nonspecific white matter disease, typical of chronic microvascular disease. 3. Soft tissue air in the left neck likely due to recent chest tube placement. Please note that all CT scans at this facility use dose modulation, iterative reconstruction, and/or weight-based dosing when appropriate to reduce radiation dose to as low as reasonably achievable. Dictated by Mari Pringle MD @ Jun 01 2019 9:02PM Signed by Dr. Mari Pringle @ Jun 01 2019 9:02PM
--- NOTE | 2019-06-01 21:18 | CT ---
INDICATION: Fall with left lower chest trauma. Chest tube placed earlier today TECHNIQUE: CT abdomen and pelvis acquired with 100 cc Isovue-300 IV contrast. COMPARISON: CT abdomen pelvis September 14, 2016 FINDINGS: Lower chest: Soft tissue air in the left chest and abdomen from recent chest tube placement small left pneumothorax identified. Trace amount of left pleural fluid. Liver: Unremarkable. Spleen: Unremarkable. Pancreas: Unremarkable. Gallbladder and bile ducts: Unremarkable. Adrenal glands: Unremarkable. Kidneys: Unremarkable. GI tract: Colonic diverticulosis. Appendix is not seen. Vascular structures: Significant atherosclerotic disease. Dilatation of the proximal abdominal aorta measuring up to 3.3 cm in diameter, previously 3.1 cm. The abdominal aorta at the level of the renal arteries measures 1.9 cm. There is an infrarenal abdominal aortic aneurysm measuring 3.2 x 4.8 cm in maximum size, previously 3.1 x 4.7 cm. There are several small diverticula like projections arising from the aneurysm. The common iliac arteries are normal in diameter. Lymph nodes: Unremarkable. Miscellaneous: Unremarkable. No free air or significant free fluid. Pelvic Organs: There are a few uterine fibroids measuring up to 2.2 x 3.2 cm. Bones: Unremarkable for age. No acute fracture. IMPRESSION: Small left pneumothorax and trace left pleural fluid. Air in the left chest and abdominal wall likely due to recent chest tube placement. No acute injury within the abdomen or pelvis. Infrarenal abdominal aortic aneurysm measuring up to 4.8 cm in maximum diameter. Recommend nonemergent vascular surgery consultation. Colonic diverticulosis. Uterine fibroids. Please note that all CT scans at this facility use dose modulation, iterative reconstruction, and/or weight-based dosing when appropriate to reduce radiation dose to as low as reasonably achievable. Dictated by Mari Pringle MD @ Jun 01 2019 8:58PM Signed by Dr. Mari Pringle @ Sep 2018 9:16PM
--- NOTE | 2019-06-01 21:30 | CT ---
INDICATION: Fall, hit left lower chest, chest tube placed earlier today TECHNIQUE: CT chest was acquired with 100 cc Isovue 370 IV contrast. COMPARISON: Chest radiograph from earlier today FINDINGS: Cardiovascular structures: Heart size is normal. Coronary artery calcifications. Thoracic aorta and main pulmonary artery are normal in caliber. Moderate atherosclerotic disease within the aorta Mediastinum and samia: No mass or adenopathy. Lungs: Emphysematous changes. Pleura and pericardium: There is a left-sided chest tube with the tip at the left posterior pleural space. There is a very small residual left pneumothorax. Trace amount of left pleural fluid. Chest wall and axilla: No mass or adenopathy. Soft tissue air in the left lower neck, left chest wall, and left abdominal wall Upper abdomen: Hepatic steatosis. Bones: Minimally displaced left lateral 6th rib fracture. IMPRESSION: Minimally displaced left lateral 6th rib fracture. Left-sided chest tube in place with very small residual left pneumothorax and trace amount of left pleural fluid. Coronary artery disease. Emphysema. Hepatic steatosis. Please note that all CT scans at this facility use dose modulation, iterative reconstruction, and/or weight-based dosing when appropriate to reduce radiation dose to as low as reasonably achievable. Dictated by Mari Pringle MD @ Jun 01 2019 9:29PM Signed by Dr. Mari Pringle @ Jun 01 2019 9:29PM
--- NOTE | 2019-06-01 23:24 | OR ---
SURGEON: IFEOMA SIMPSON MD DATE OF PROCEDURE: 06/01/2019 PREOPERATIVE DIAGNOSIS: Left-sided traumatic pneumothorax. POSTOPERATIVE DIAGNOSIS: Left-sided traumatic pneumothorax. PROCEDURE PERFORMED: Left chest tube insertion. PRIMARY SURGEON: Ifeoma Simpson M.D. ANESTHESIA: MAC. FLUIDS: 600 mL crystalloid. ESTIMATED BLOOD LOSS: 5 mL. FINDINGS: 20-Syriac chest tube inserted in between the 5th and 6th rib, secured to the skin at 16 cm. COMPLICATIONS: None. INDICATIONS: The patient is a 69-year-old female, who presents 1 day after a fall at home. She was having severe chest pain and presented to the emergency room. She was found on chest x-ray to have a traumatic left-sided pneumothorax. The patient has a history of [id number] COPD, and given the level of pain she was in, it was felt that it would be safer to take her to the operating room for monitored anesthesia care and chest tube placement. This way her airway and oxygen saturations could be managed more closely. I explained the procedure, expected perioperative course, and risks including bleeding, infection, or damage to surrounding structures. The patient verbalized understanding and wishes to proceed. PROCEDURE IN DETAIL: The patient was brought into the OR and placed on the OR table in supine position. A time-out was completed verifying the patient's name, age, date of , allergies, and procedure to be performed. The left arm was placed at a 90-degree angle from the chest, and her chest wall was prepped and draped in usual standard fashion. I chose my insertion site based on the physical landmarks. I anesthetized an area along the anterior-mid axillary line with 1% lidocaine plain. A 10 blade was used to make a 3 cm skin incision. I then bluntly dissected to the level of the chest wall. Once I reached the chest wall, I re-anesthetized with 1% lidocaine with epinephrine along the periosteal surface. A Fany was then brought in and used to puncture over the top of the 6th rib into the pleural cavity. A silva of air was noted. I placed my finger through that opening and digitally palpated entrance into the chest wall cavity. A 20-Syriac chest tube was then placed through this opening and directed superiorly and posteriorly. The chest tube was then secured to the skin using 2- 0 silk suture. The incision was closed with 1 interrupted 2-0 silk suture as well. Vaseline gauze and sterile dressings were applied. The chest tube was placed to suction. No significant air leak was noted. She was then taken to the PACU, where a chest x-ray was performed. This showed re-expansion of the lung tissue with a small apical pneumothorax left over. She tolerated it well with no immediate complications. All counts were complete and correct at the end of the case. [place] /[id number]
[2019-06-02] MEDS: Acetaminophen 325 MG Tab PO SCH ×5 (01:33→23:02)
[2019-06-02] MEDS: Albuterol/Ipratropium 3.0-0.5 MG/3 ML Neb Soln NEB SCH ×7 (03:02→21:18)
[2019-06-02] MEDS: Ketorolac 15 MG/ML SDV IVPUSH SCH ×4 (03:49→20:50)
--- NOTE | 2019-06-02 05:32 | CR ---
INDICATION: Pneumothorax followup. Chest tube placed yesterday. COMPARISON: 3:26 p.m. 06/01/2019 chest radiograph. FINDINGS/IMPRESSION: Unchanged position of left chest tube with its tip in the left apical region. No definite left pneumothorax is currently identified. Minimal left basilar atelectasis is present. Right lung remains clear. No pleural effusions. Stable cardiac configuration. Unchanged extensive left chest wall emphysema. No acute osseous findings. Dictated by Obi Reaves MD @ 06/02/2019 5:31:41 AM Dictated by: Obi Reaves MD @ 06/02/2019 05:31:59 (Electronically Signed)
[2019-06-02 06:53] LABS: BLOOD UREA NITROGEN,BUN 21 mg/dL (7.0-18.0); CARBON DIOXIDE,CO2 26.4 mmol/L (21.0-32.0); CHLORIDE,CL 103 mmol/L (98-107); GLUCOSE RANDOM 160 mg/dL (74-106); POTASSIUM,K 3.8 mmol/L (3.5-5.1); SODIUM,NA 138 mmol/L (136-145)
[2019-06-02] MEDS ORDERED: Magnesium Sulfate/Water 4 GM in Premix Bag 1 BAG IV ONE (07:54)
[2019-06-02] MEDS: Folic Acid 1 MG Tab PO SCH (09:09)
[2019-06-02] MEDS: Bisacodyl 5 MG Tab PO SCH (09:09)
[2019-06-02] MEDS: Nicotine 21 MG/24 Hr Patch TRDERM SCH (09:09)
[2019-06-02] MEDS: Multivitamin Tab PO SCH (09:10)
[2019-06-02] MEDS: Thiamine 100 MG Tab PO SCH (09:11)
--- NOTE | 2019-06-02 10:33 | PCM.SURGPN ---
- General Info Date of Service: 06/02/19 Date of Surgery/Procedure: 06/01/19 POD#: 1 Functional Status: Reports: Pain Controlled, Tolerating Diet, Ambulating, Urinating, Incentive Spirometry - Review of Systems General: Reports: No Symptoms Pulmonary: Reports: No Symptoms Cardiovascular: Reports: No Symptoms Gastrointestinal: Reports: No Symptoms 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: Reports: No Symptoms Musculoskeletal: Reports: No Symptoms Skin: Reports: No Symptoms Neurological: Reports: No Symptoms - Patient Data Vitals - Most Recent: Last Vital Signs Temp 36.7 C 06/02/19 08:00 Pulse 63 06/02/19 10:00 Resp 16 06/02/19 10:00 BP 123/55 L 06/02/19 10:00 Pulse Ox 96 06/02/19 10:00 Weight - Most Recent: 53.9 kg I&O - Last 24 Hours: Intake & Output 06/01/19 06/02/19 06/02/19 22:59 06:59 14:59 Intake Total 600 1826 Output Total 120 400 Balance 480 1426 Lab Results Last 24 Hrs: Laboratory Results - last 24 hr 06/01/19 06/01/19 06/01/19 Range/Units 12:44 12:44 12:44 WBC 8.81 (4.0-11.0) K/uL RBC 4.04 L (4.30-5.90) M/uL Hgb 13.1 (12.0-16.0) g/dL Hct 39.5 (36.0-46.0) % MCV 97.8 (80.0-98.0) fL MCH 32.4 H (27.0-32.0) pg MCHC 33.2 (31.0-37.0) g/dL RDW Std Deviation 48.4 (28.0-62.0) fl RDW Coeff of Dinora 14 (11.0-15.0) % Plt Count 239 (150-400) K/uL MPV 9.30 (7.40-12.00) fL Neut % (Auto) 80.2 H (48.0-80.0) % Lymph % (Auto) 9.2 L (16.0-40.0) % [place] % (Auto) 9.2 (0.0-15.0) % Eos % (Auto) 1.2 (0.0-7.0) % Baso % (Auto) 0.2 (0.0-1.5) % Neut # (Auto) 7.1 H (1.4-5.7) K/uL Lymph # (Auto) 0.8 (0.6-2.4) K/uL [place] # (Auto) 0.8 (0.0-0.8) K/uL Eos # (Auto) 0.1 (0.0-0.7) K/uL Baso # (Auto) 0.0 (0.0-0.1) K/uL Nucleated RBC % 0.0 /100WBC Nucleated RBCs # 0 K/uL INR 0.95 APTT 23.3 (18.6-31.3) SEC Sodium 141 (136-145) mmol/L Potassium 4.4 (3.5-5.1) mmol/L Chloride 103 (98-107) mmol/L Carbon Dioxide 26.4 (21.0-32.0) mmol/L BUN 21 H (7.0-18.0) mg/dL Creatinine 0.9 (0.6-1.0) mg/dL Est Cr Clr Drug Dosing 47.97 mL/min Estimated GFR (MDRD) > 60.0 ml/min Glucose 141 H (74-106) mg/dL Calcium 9.7 (8.5-10.1) mg/dL Phosphorus (2.6-4.7) mg/dL Magnesium (1.8-2.4) mg/dL Total Bilirubin 0.5 (0.2-1.0) mg/dL AST 41 H (15-37) IU/L ALT 38 (14-63) IU/L Alkaline Phosphatase 109 (46-116) U/L Total Protein 7.8 (6.4-8.2) g/dL Albumin 3.5 (3.4-5.0) g/dL Globulin 4.3 H (2.6-4.0) g/dL Albumin/Globulin Ratio 0.8 L (0.9-1.6) Urine Color Urine Appearance Urine pH (5.0-8.0) Ur Specific [place] (1.001-1.035) Urine Protein (NEGATIVE) mg/dL Urine Glucose (UA) (NEGATIVE) mg/dL Urine Ketones (NEGATIVE) mg/dL Urine Occult Blood (NEGATIVE) Urine Nitrite (NEGATIVE) Urine Bilirubin (NEGATIVE) Urine Urobilinogen (<2.0) EU/dL Ur Leukocyte Esterase (NEGATIVE) Urine RBC (0-2/HPF) Urine WBC (0-5/HPF) Ur Epithelial Cells (NONE-FEW) Amorphous Sediment (NEGATIVE) Urine Bacteria (NEGATIVE) Hyaline Casts (0-2/LPF) Ethyl Alcohol mg/dL 06/01/19 06/01/19 06/01/19 Range/Units 12:44 17:13 18:56 WBC (4.0-11.0) K/uL RBC (4.30-5.90) M/uL Hgb (12.0-16.0) g/dL Hct (36.0-46.0) % MCV (80.0-98.0) fL MCH (27.0-32.0) pg MCHC (31.0-37.0) g/dL RDW Std Deviation (28.0-62.0) fl RDW Coeff of Dinora (11.0-15.0) % Plt Count (150-400) K/uL MPV (7.40-12.00) fL Neut % (Auto) (48.0-80.0) % Lymph % (Auto) (16.0-40.0) % [place] % (Auto) (0.0-15.0) % Eos % (Auto) (0.0-7.0) % Baso % (Auto) (0.0-1.5) % Neut # (Auto) (1.4-5.7) K/uL Lymph # (Auto) (0.6-2.4) K/uL [place] # (Auto) (0.0-0.8) K/uL Eos # (Auto) (0.0-0.7) K/uL Baso # (Auto) (0.0-0.1) K/uL Nucleated RBC % /100WBC Nucleated RBCs # K/uL INR APTT (18.6-31.3) SEC Sodium (136-145) mmol/L Potassium (3.5-5.1) mmol/L Chloride (98-107) mmol/L Carbon Dioxide (21.0-32.0) mmol/L BUN (7.0-18.0) mg/dL Creatinine (0.6-1.0) mg/dL Est Cr Clr Drug Dosing mL/min Estimated GFR (MDRD) ml/min Glucose (74-106) mg/dL Calcium (8.5-10.1) mg/dL Phosphorus 3.0 (2.6-4.7) mg/dL Magnesium 1.2 L (1.8-2.4) mg/dL Total Bilirubin (0.2-1.0) mg/dL AST (15-37) IU/L ALT (14-63) IU/L Alkaline Phosphatase (46-116) U/L Total Protein (6.4-8.2) g/dL Albumin (3.4-5.0) g/dL Globulin (2.6-4.0) g/dL Albumin/Globulin Ratio (0.9-1.6) Urine Color YELLOW Urine Appearance CLOUDY Urine pH 5.5 (5.0-8.0) Ur Specific [place] >= 1.030 (1.001-1.035) Urine Protein TRACE H (NEGATIVE) mg/dL Urine Glucose (UA) NEGATIVE (NEGATIVE) mg/dL Urine Ketones NEGATIVE (NEGATIVE) mg/dL Urine Occult Blood TRACE-INTACT H (NEGATIVE) Urine Nitrite POSITIVE H (NEGATIVE) Urine Bilirubin NEGATIVE (NEGATIVE) Urine Urobilinogen 0.2 (<2.0) EU/dL Ur Leukocyte Esterase NEGATIVE (NEGATIVE) Urine RBC 1-3 (0-2/HPF) Urine WBC 4-6 (0-5/HPF) Ur Epithelial Cells MODERATE (NONE-FEW) Amorphous Sediment MODERATE (NEGATIVE) Urine Bacteria 4+ H (NEGATIVE) Hyaline Casts 0-2 (0-2/LPF) Ethyl Alcohol 89 mg/dL 06/02/19 06/02/19 Range/Units 05:50 05:50 WBC 6.48 (4.0-11.0) K/uL RBC 3.29 L (4.30-5.90) M/uL Hgb 10.5 L (12.0-16.0) g/dL Hct 32.6 L (36.0-46.0) % MCV 99.1 H (80.0-98.0) fL MCH 31.9 (27.0-32.0) pg MCHC 32.2 (31.0-37.0) g/dL RDW Std Deviation 49.7 (28.0-62.0) fl RDW Coeff of Dinora 14 (11.0-15.0) % Plt Count 188 (150-400) K/uL MPV 9.60 (7.40-12.00) fL Neut % (Auto) (48.0-80.0) % Lymph % (Auto) (16.0-40.0) % [place] % (Auto) (0.0-15.0) % Eos % (Auto) (0.0-7.0) % Baso % (Auto) (0.0-1.5) % Neut # (Auto) (1.4-5.7) K/uL Lymph # (Auto) (0.6-2.4) K/uL [place] # (Auto) (0.0-0.8) K/uL Eos # (Auto) (0.0-0.7) K/uL Baso # (Auto) (0.0-0.1) K/uL Nucleated RBC % 0.0 /100WBC Nucleated RBCs # 0 K/uL INR APTT (18.6-31.3) SEC Sodium 138 (136-145) mmol/L Potassium 3.8 (3.5-5.1) mmol/L Chloride 103 (98-107) mmol/L Carbon Dioxide 26.4 (21.0-32.0) mmol/L BUN 21 H (7.0-18.0) mg/dL Creatinine 0.8 (0.6-1.0) mg/dL Est Cr Clr Drug Dosing 53.97 mL/min Estimated GFR (MDRD) > 60.0 ml/min Glucose 160 H (74-106) mg/dL Calcium 8.1 L (8.5-10.1) mg/dL Phosphorus 3.4 (2.6-4.7) mg/dL Magnesium 1.1 L (1.8-2.4) mg/dL Total Bilirubin (0.2-1.0) mg/dL AST (15-37) IU/L ALT (14-63) IU/L Alkaline Phosphatase (46-116) U/L Total Protein (6.4-8.2) g/dL Albumin (3.4-5.0) g/dL Globulin (2.6-4.0) g/dL Albumin/Globulin Ratio (0.9-1.6) Urine Color Urine Appearance Urine pH (5.0-8.0) Ur Specific [place] (1.001-1.035) Urine Protein (NEGATIVE) mg/dL Urine Glucose (UA) (NEGATIVE) mg/dL Urine Ketones (NEGATIVE) mg/dL Urine Occult Blood (NEGATIVE) Urine Nitrite (NEGATIVE) Urine Bilirubin (NEGATIVE) Urine Urobilinogen (<2.0) EU/dL Ur Leukocyte Esterase (NEGATIVE) Urine RBC (0-2/HPF) Urine WBC (0-5/HPF) Ur Epithelial Cells (NONE-FEW) Amorphous Sediment (NEGATIVE) Urine Bacteria (NEGATIVE) Hyaline Casts (0-2/LPF) Ethyl Alcohol mg/dL Med Orders - Current: Current Medications Acetaminophen (Tylenol) 650 mg PO Q6H [facility] Last Admin: 06/02/19 07:36 Dose: Not Given Albuterol/Ipratropium (Duoneb 3.0-0.5 Mg/3 Ml) 3 ml NEB Q4HRRT [facility] Last Admin: 06/02/19 09:17 Dose: 3 ml Bisacodyl (Dulcolax) 5 mg PO DAILY [facility] Last Admin: 06/02/19 09:09 Dose: 5 mg Cyclobenzaprine HCl (Flexeril) 5 mg PO TID PRN PRN Reason: Muscle Spasm Diphenhydramine HCl (Benadryl) 25 mg IVPUSH Q6H PRN PRN Reason: Itching Diphenhydramine HCl (Benadryl) 25 mg PO Q6H PRN PRN Reason: Itching Folic Acid (Folic Acid) 1 mg PO DAILY [facility] Last Admin: 06/02/19 09:09 Dose: 1 mg Hydralazine HCl (Apresoline) 10 mg PO Q4H PRN PRN Reason: Hypertension Sodium Chloride (Normal Saline) 1,000 mls @ 75 mls/hr IV ASDIRECTED [facility] Last Admin: 06/02/19 07:00 Dose: 75 mls/hr Ketorolac Tromethamine (Toradol) 15 mg IVPUSH Q6H [facility] Stop: 06/06/19 15:32 Last Admin: 06/02/19 03:49 Dose: 15 mg Lorazepam (Ativan) 0 mg PO ASDIRECTED [facility]; Protocol Morphine Sulfate (Morphine Retention Representative 30 Mg In 30 Ml) 0 mg IV ASDIRECTED [facility]; Protocol Multivitamins/Minerals/Vitamin C (Tab-A-Vickie) 1 tab PO DAILY [facility] Last Admin: 06/02/19 09:10 Dose: 1 tab Naloxone HCl (Narcan) 0.04 mg IVPUSH Q3M PRN PRN Reason: Respiratory Depression Nicotine (Habitrol) 21 mg TRDERM DAILY [facility] Last Admin: 06/02/19 09:09 Dose: 21 mg Ondansetron HCl (Zofran) 4 mg IVPUSH Q6H PRN PRN Reason: Nausea/Vomiting Last Admin: 06/02/19 04:21 Dose: 4 mg Ondansetron HCl (Zofran) 4 mg IVPUSH Q6H PRN PRN Reason: Nausea/Vomiting Pneumococcal Polyvalent Vaccine (Pneumovax 23) 0.5 ml IM .ONCE ONE Stop: 06/02/19 14:01 Polyethylene Glycol (Miralax) 17 gm PO DAILY [facility] Promethazine HCl (Phenergan) 25 mg IM Q6H PRN PRN Reason: Nausea Sodium Chloride (Saline Flush) 10 ml FLUSH ASDIRECTED PRN PRN Reason: Keep Vein Open Sodium Chloride (Saline Flush) 2.5 ml FLUSH ASDIRECTED PRN PRN Reason: Keep Vein Open Sodium Chloride (Normal Saline) 10 ml IV ASDIRECTED PRN PRN Reason: IV Use Thiamine HCl (Vitamin B-1) 100 mg PO DAILY [facility] Last Admin: 06/02/19 09:11 Dose: 100 mg Discontinued Medications Acetaminophen (Tylenol) 650 mg PO Q6H [facility] Last Admin: 06/01/19 18:56 Dose: Not Given Albuterol/Ipratropium (Duoneb 3.0-0.5 Mg/3 Ml) 3 ml NEB ONETIME ONE Stop: 06/01/19 12:52 Last Admin: 06/01/19 12:56 Dose: 3 ml Cefazolin Sodium (Ancef) Confirm Administered Dose 1 gm .ROUTE .STK-MED ONE Stop: 06/01/19 14:51 Fentanyl (Sublimaze) Confirm Administered Dose 100 mcg .ROUTE .STK-MED ONE Stop: 06/01/19 15:24 Last Admin: 06/01/19 17:52 Dose: Not Given Multivitamins/Minerals 10 ml/Thiamine HCl 100 mg/ Folic Acid 1 mg/ Sodium Chloride 1,011.2 mls @ 100 mls/hr IV ONETIME ONE Stop: 06/02/19 05:06 Last Admin: 06/01/19 20:45 Dose: 100 mls/hr Magnesium Sulfate 4 gm/ Premix 100 mls @ 50 mls/hr IV ONETIME ONE Stop: 06/02/19 09:53 Last Admin: 06/02/19 09:05 Dose: 50 mls/hr Iopamidol (Isovue Multipack-370 (76%)) 100 ml IVPUSH ONETIME STA Stop: 06/01/19 20:31 Last Admin: 06/01/19 20:31 Dose: 100 ml Ketamine HCl (Ketalar) Confirm Administered Dose 500 mg .ROUTE .STK-MED ONE Stop: 06/01/19 14:19 Ketorolac Tromethamine (Toradol) Confirm Administered Dose 30 mg .ROUTE .STK- MED ONE Stop: 06/01/19 15:33 Lidocaine (Xylocaine-Mpf 2%) Confirm Administered Dose 5 ml .ROUTE .STK-MED ONE Stop: 06/01/19 14:19 Lidocaine/Epinephrine (Xylocaine 1% With Epinephrine 1:100,000) Confirm Administered Dose 20 ml .ROUTE .STK-MED ONE Stop: 06/01/19 14:05 Pneumococcal Polyvalent Vaccine (Pneumovax 23) 0.5 ml IM .ONCE ONE Stop: 06/01/19 16:46 Last Admin: 06/01/19 20:39 Dose: Not Given Propofol (Diprivan 20 Ml) Confirm Administered Dose 400 mg .ROUTE .STK-MED ONE Stop: 06/01/19 14:20 - Exam Wound/Incisions: Healing Well, Dressing Dry and Intact, No Drainage General: Alert, Oriented, Cooperative HEENT: Pupils Equal, Pupils Reactive Neck: Supple Lungs: Normal Respiratory Effort, Other (Diminished BS to bases bilaterally. Fine crackles in left upper lung lopez. Clear to auscultation on the right. Decreased subcutaneous emphysema) Cardiovascular: Regular Rate, Regular Rhythm GI/Abdominal Exam: Soft, Non-Tender, No Distention, No Mass Extremities: Normal Inspection, Normal Range of Motion Skin: Warm, Dry, Intact Neurological: No New Focal Deficit Psy/Mental Status: Alert, Normal Affect, Normal Mood - Problem List & Annotations (1) Fall SNOMED Code(s): 1235645, 841720339 Code(s): W19.XXXA - UNSPECIFIED FALL, INITIAL ENCOUNTER Status: Acute Current Visit: Yes (2) Pneumothorax SNOMED Code(s): 98494163 Code(s): J93.9 - PNEUMOTHORAX, UNSPECIFIED Status: Acute Current Visit: Yes Qualifiers: Pneumothorax type: unspecified pneumothorax Qualified Code(s): J93.9 - Pneumothorax, unspecified - Problem List Review Problem List Initiated/Reviewed/Updated: Yes - My Orders Last 24 Hours: Active Orders 24 hr Category Date Time Status Patient Status [ADT] Routine ADT 06/01/19 15:36 Active Antiembolic Devices [RC] Q12H Care 06/01/19 18:46 Active CIWAA Assessment [RC] Q4H Care 06/01/19 15:47 Active Chest Tube Management [RC] Q4H Care 06/01/19 15:29 Active Communication Order [RC] PER UNIT ROUTINE Care 06/01/19 15:31 Active Intake and Output [RC] Q12H Care 06/01/19 15:38 Active Neuro Check [RC] Q12H Care 06/01/19 18:45 Active Notify Provider [RC] PRN Care 06/01/19 15:47 Active Oxygen Therapy [RC] PRN Care 06/01/19 15:36 Active BIOMETRIC FINGERPRINTING TECHNICIAN Record [RC] Q4H Care 06/01/19 15:31 Active Pulse Oximetry [RC] CONTINUOUS Care 06/01/19 15:38 Active RT Aerosol Therapy [RC] ASDIRECTED Care 06/01/19 15:35 Active RT Incentive Spirometry [RC] Q1HWA Care 06/01/19 15:35 Active Up ad Ema [RC] ASDIRECTED Care 06/01/19 15:35 Active Regular Diet [DIET] Diet 06/01/19 Dinner Active CULTURE URINE [RM] Stat Lab 06/01/19 17:13 Received MAGNESIUM [CHEM] Routine Lab 06/02/19 13:00 Ordered Acetaminophen [Tylenol] Med 06/01/19 18:00 Active 650 mg PO Q6H Albuterol/Ipratropium [DuoNeb 3.0-0.5 MG/3 ML] Med 06/01/19 18:00 Active 3 ml NEB Q4HRRT Bisacodyl [Dulcolax] Med 06/02/19 09:00 Active 5 mg PO DAILY Cyclobenzaprine [Flexeril] Med 06/01/19 15:32 Active 5 mg PO TID PRN Folic Acid Med 06/01/19 18:45 Active 1 mg PO DAILY Ketorolac [Toradol] Med 06/01/19 15:45 Active 15 mg IVPUSH Q6H LORazepam [Ativan] Med 06/01/19 16:00 Active See Protocol PO ASDIRECTED Morphine PF [Morphine BIOMETRIC FINGERPRINTING TECHNICIAN 30 MG in 30 ML] Med 06/01/19 15:30 Active See Protocol IV ASDIRECTED Multivitamins [Tab-A-Vickie] Med 06/02/19 09:00 Active 1 tab PO DAILY Naloxone [Narcan] Med 06/01/19 15:30 Active 0.04 mg IVPUSH Q3M PRN Nicotine [Habitrol] Med 06/01/19 18:45 Active 21 mg TRDERM DAILY Ondansetron [Zofran] Med 06/01/19 15:30 Active 4 mg IVPUSH Q6H PRN Ondansetron [Zofran] Med 06/01/19 15:35 Active 4 mg IVPUSH Q6H PRN Pneumococcal Polyvalent-23 Vac [Pneumovax 23] Med 06/02/19 14:00 Once 0.5 ml IM .ONCE ONE Polyethylene Glycol 3350 [MiraLAX] Med 06/02/19 09:00 Active 17 gm PO DAILY Promethazine [Phenergan] Med 06/01/19 15:35 Active 25 mg IM Q6H PRN Sodium Chloride 0.9% [Normal Saline] Med 06/01/19 15:35 Active 10 ml IV ASDIRECTED PRN Sodium Chloride 0.9% [Normal Saline] 1,000 ml Med 06/01/19 15:45 Active IV ASDIRECTED Sodium Chloride 0.9% [Saline Flush] Med 06/01/19 15:35 Active 10 ml FLUSH ASDIRECTED PRN Sodium Chloride 0.9% [Saline Flush] Med 06/01/19 15:35 Active 2.5 ml FLUSH ASDIRECTED PRN Thiamine [Vitamin B-1] Med 06/01/19 18:45 Active 100 mg PO DAILY diphenhydrAMINE [Benadryl] Med 06/01/19 15:30 Active 25 mg IVPUSH Q6H PRN diphenhydrAMINE [Benadryl] Med 06/01/19 15:30 Active 25 mg PO Q6H PRN hydrALAZINE [Apresoline] Med 06/01/19 15:54 Active 10 mg PO Q4H PRN Peripheral IV Insertion Adult [OM.PC] Urgent Oth 06/01/19 15:35 Ordered SCD [Sequential Compression Device] [OM.PC] Routine Oth 06/01/19 18:45 Ordered Resuscitation Status Routine Resus Stat 06/01/19 15:35 Ordered Medication Orders Acetaminophen (Tylenol) 650 mg PO Q6H [facility] Last Admin: 06/02/19 07:36 Dose: Not Given Admin: 06/02/19 01:33 Dose: Not Given Admin: 06/01/19 18:47 Dose: 650 mg Albuterol/Ipratropium (Duoneb 3.0-0.5 Mg/3 Ml) 3 ml NEB Q4HRRT [facility] Last Admin: 06/02/19 09:17 Dose: 3 ml Admin: 06/02/19 05:48 Dose: Not Given Admin: 06/02/19 03:49 Dose: 3 ml Admin: 06/02/19 03:02 Dose: Not Given Admin: 06/01/19 21:12 Dose: 3 ml Admin: 06/01/19 18:20 Dose: 3 ml Bisacodyl (Dulcolax) 5 mg PO DAILY [facility] Last Admin: 06/02/19 09:09 Dose: 5 mg Cyclobenzaprine HCl (Flexeril) 5 mg PO TID PRN PRN Reason: Muscle Spasm Diphenhydramine HCl (Benadryl) 25 mg IVPUSH Q6H PRN PRN Reason: Itching Diphenhydramine HCl (Benadryl) 25 mg PO Q6H PRN PRN Reason: Itching Folic Acid (Folic Acid) 1 mg PO DAILY [facility] Last Admin: 06/02/19 09:09 Dose: 1 mg Admin: 06/01/19 19:34 Dose: 1 mg Hydralazine HCl (Apresoline) 10 mg PO Q4H PRN PRN Reason: Hypertension Sodium Chloride (Normal Saline) 1,000 mls @ 75 mls/hr IV ASDIRECTED [facility] Last Admin: 06/02/19 07:00 Dose: 75 mls/hr Ketorolac Tromethamine (Toradol) 15 mg IVPUSH Q6H [facility] Stop: 06/06/19 15:32 Last Admin: 06/02/19 03:49 Dose: 15 mg Admin: 06/01/19 22:37 Dose: 15 mg Admin: 06/01/19 17:51 Dose: Lorazepam (Ativan) 0 mg PO ASDIRECTED [facility]; Protocol Morphine Sulfate (Morphine Retention Representative 30 Mg In 30 Ml) 0 mg IV ASDIRECTED [facility]; Protocol Multivitamins/Minerals/Vitamin C (Tab-A-Vickie) 1 tab PO DAILY [facility] Last Admin: 06/02/19 09:10 Dose: 1 tab Naloxone HCl (Narcan) 0.04 mg IVPUSH Q3M PRN PRN Reason: Respiratory Depression Nicotine (Habitrol) 21 mg TRDERM DAILY [facility] Last Admin: 06/02/19 09:09 Dose: 21 mg Admin: 06/01/19 19:34 Dose: Not Given Ondansetron HCl (Zofran) 4 mg IVPUSH Q6H PRN PRN Reason: Nausea/Vomiting Last Admin: 06/02/19 04:21 Dose: 4 mg Ondansetron HCl (Zofran) 4 mg IVPUSH Q6H PRN PRN Reason: Nausea/Vomiting Pneumococcal Polyvalent Vaccine (Pneumovax 23) 0.5 ml IM .ONCE ONE Stop: 06/02/19 14:01 Polyethylene Glycol (Miralax) 17 gm PO DAILY [facility] Promethazine HCl (Phenergan) 25 mg IM Q6H PRN PRN Reason: Nausea Sodium Chloride (Saline Flush) 10 ml FLUSH ASDIRECTED PRN PRN Reason: Keep Vein Open Sodium Chloride (Saline Flush) 2.5 ml FLUSH ASDIRECTED PRN PRN Reason: Keep Vein Open Sodium Chloride (Normal Saline) 10 ml IV ASDIRECTED PRN PRN Reason: IV Use Thiamine HCl (Vitamin B-1) 100 mg PO DAILY [facility] Last Admin: 06/02/19 09:11 Dose: 100 mg Admin: 06/01/19 19:34 Dose: 100 mg - Plan Plan (Free Text/Narrative):: 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 Keep current settings as patient is very comfortable. Continued scheduled tylenol and toradol. CV: Vital signs stable overall. Continue prn hydralazine for SBp >170. Pulm: Chest xray shows resolution of pneumothorax. Will keep chest tube to suction today. No evidence of an air leak. May try to wean and remove tomorrow. Continue scheduled nebs secondary to mod-severe COPD. Nicotine patch applied. GI: Regular diet. Tolerating. D/C IVF. Multivitamin daily. Miralax and dulcolax for bowel regiment. Renal: UOP adequate. BUN stable. Replacing magnesium. Phos WNL. ID: No need for antibiotics at this point. Afebrile. Heme: Slightly anemic this morning. No evidence of other trauma. Likely some blood loss from intial trauma and now rehydrated. Will continue to monitor. Will start heparin for DVT px today. Remain in ICU for today.
[2019-06-02] MEDS: Polyethylene Glycol 3350 Powder 17 GM Packet PO SCH (10:48)
[2019-06-02] MEDS: Heparin Sodium 5,000 Units/ML Vial SUBCUT SCH ×2 (11:01→23:03)
[2019-06-02] MEDS ORDERED: Sodium Chloride 0.9% 1,000 ML IV SCH (11:45)
[2019-06-02] MEDS ORDERED: Pneumococcal Polyvalent-23 Vaccine 0.5 ML SDV IM ONE (14:00)
--- NOTE | 2019-06-02 18:10 | PN ---
THC Physician - Brief Progress [id number]/21/2019 18:07[facility] Elissa Fortune, [place] - SARINAN (AQUILES) - SARINAN SHARON COCHRANCjDate of Service 06/02/2019 18:07HPI/Events of Note 69yo F with PMH of significant COPD and ETOH intake (5 shooters/day), unclear last intake wit hETOH level 89 upon admission. admitted after recent fall causing left sided chest and right knee jin n. CXRshowed 20-30% pneumothorax on left with subcutaneous air. Chest tube placed by surgery. Seenon camera, comfortable. Discussed with bedside nurse and reviewed notes in the EMR.eICU Recommendations: 1. Chest tube care per surgery, pain control.heparin for dvt prophylaxis.Interventions Major-Other: p neumothoraxMinor-Communication with other healthcare providers and/or family
[2019-06-03] MEDS: Albuterol/Ipratropium 3.0-0.5 MG/3 ML Neb Soln NEB SCH ×6 (01:47→21:23)
[2019-06-03] MEDS: Ketorolac 15 MG/ML SDV IVPUSH SCH (03:48)
[2019-06-03] MEDS: Acetaminophen 325 MG Tab PO SCH (06:45)
--- NOTE | 2019-06-03 06:51 | CR ---
INDICATION: Follow up pneumothorax. Chest tube. COMPARISON: 4:18 a.m. 06/02/2019 chest radiograph. FINDINGS/IMPRESSION: Unchanged position of left chest tube, its tip in the left apical region. No pneumothorax identified. Unchanged mild left basilar scanning consistent with a small amount of atelectasis. Slight blunting of the left costophrenic angle consistent with a trace left pleural effusion. Normal heart size. No significant change in extensive left chest wall emphysema. Dictated by Obi Reaves MD @ 06/03/2019 6:49:43 AM Dictated by: Obi Reaves MD @ 06/03/2019 06:50:26 (Electronically Signed)
--- NOTE | 2019-06-03 09:00 | PCM.SURGPN ---
- General Info Date of Service: 06/03/19 Date of Surgery/Procedure: 06/01/19 POD#: 2 Functional Status: Reports: Pain Controlled, Tolerating Diet, Ambulating, Urinating. Denies: New Symptoms - Review of Systems General: Reports: No Symptoms Pulmonary: Reports: Cough, Wheezing. Denies: Shortness of Breath, Pleuritic Chest Pain, Hemoptysis Cardiovascular: Reports: No Symptoms Gastrointestinal: Reports: No Symptoms 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: Reports: No Symptoms - Patient Data Vitals - Most Recent: Last Vital Signs Temp 36.8 C 06/03/19 04:00 Pulse 68 06/03/19 07:00 Resp 13 06/03/19 08:06 BP 110/54 L 06/03/19 08:06 Pulse Ox 95 06/03/19 08:06 Weight - Most Recent: 55 kg I&O - Last 24 Hours: Intake & Output 06/02/19 06/03/19 06/03/19 22:59 06:59 14:59 Intake Total 605 750 Output Total 5 361 Balance 600 389 Lab Results Last 24 Hrs: Laboratory Results - last 24 hr 06/02/19 Range/Units 13:00 Magnesium 2.9 H (1.8-2.4) mg/dL Med Orders - Current: Current Medications Hydrocodone Bitart/Acetaminophen ([place] 325-5 Mg) 2 tab PO Q4H PRN PRN Reason: Pain Albuterol/Ipratropium (Duoneb 3.0-0.5 Mg/3 Ml) 3 ml NEB Q4HRRT [facility] Last Admin: 06/03/19 05:44 Dose: 3 ml Bisacodyl (Dulcolax) 5 mg PO DAILY [facility] Last Admin: 06/02/19 09:09 Dose: 5 mg Cyclobenzaprine HCl (Flexeril) 5 mg PO TID PRN PRN Reason: Muscle Spasm Diphenhydramine HCl (Benadryl) 25 mg IVPUSH Q6H PRN PRN Reason: Itching Folic Acid (Folic Acid) 1 mg PO DAILY [facility] Last Admin: 06/02/19 09:09 Dose: 1 mg Heparin Sodium (Porcine) (Heparin Sodium) 5,000 units SUBCUT Q12H [facility] Last Admin: 06/02/19 23:03 Dose: 5,000 units Hydralazine HCl (Apresoline) 10 mg PO Q4H PRN PRN Reason: Hypertension Sodium Chloride (Normal Saline) 1,000 mls @ 25 mls/hr IV ASDIRECTED [facility] Last Admin: 06/02/19 07:00 Dose: 75 mls/hr Sodium Chloride (Normal Saline) 1,000 mls @ 25 mls/hr IV ASDIRECTED [facility] Ketorolac Tromethamine (Toradol) 10 mg PO Q6H [facility] Stop: 06/08/19 08:46 Multivitamins/Minerals/Vitamin C (Tab-A-Vickie) 1 tab PO DAILY [facility] Last Admin: 06/02/19 09:10 Dose: 1 tab Naloxone HCl (Narcan) 0.04 mg IVPUSH Q3M PRN PRN Reason: Respiratory Depression Nicotine (Habitrol) 21 mg TRDERM DAILY [facility] Last Admin: 06/02/19 09:09 Dose: 21 mg Ondansetron HCl (Zofran) 4 mg IVPUSH Q6H PRN PRN Reason: Nausea/Vomiting Last Admin: 06/02/19 04:21 Dose: 4 mg Ondansetron HCl (Zofran) 4 mg IVPUSH Q6H PRN PRN Reason: Nausea/Vomiting Polyethylene Glycol (Miralax) 17 gm PO DAILY [facility] Last Admin: 06/02/19 10:48 Dose: 17 gm Promethazine HCl (Phenergan) 25 mg IM Q6H PRN PRN Reason: Nausea Sodium Chloride (Saline Flush) 10 ml FLUSH ASDIRECTED PRN PRN Reason: Keep Vein Open Sodium Chloride (Saline Flush) 2.5 ml FLUSH ASDIRECTED PRN PRN Reason: Keep Vein Open Sodium Chloride (Normal Saline) 10 ml IV ASDIRECTED PRN PRN Reason: IV Use Thiamine HCl (Vitamin B-1) 100 mg PO DAILY [facility] Last Admin: 06/02/19 09:11 Dose: 100 mg Discontinued Medications Acetaminophen (Tylenol) 650 mg PO Q6H [facility] Last Admin: 06/01/19 18:56 Dose: Not Given Acetaminophen (Tylenol) 650 mg PO Q6H [facility] Last Admin: 06/03/19 06:45 Dose: 650 mg Albuterol/Ipratropium (Duoneb 3.0-0.5 Mg/3 Ml) 3 ml NEB ONETIME ONE Stop: 06/01/19 12:52 Last Admin: 06/01/19 12:56 Dose: 3 ml Cefazolin Sodium (Ancef) Confirm Administered Dose 1 gm .ROUTE .STK-MED ONE Stop: 06/01/19 14:51 Diphenhydramine HCl (Benadryl) 25 mg PO Q6H PRN PRN Reason: Itching Fentanyl (Sublimaze) Confirm Administered Dose 100 mcg .ROUTE .STK-MED ONE Stop: 06/01/19 15:24 Last Admin: 06/01/19 17:52 Dose: Not Given Multivitamins/Minerals 10 ml/Thiamine HCl 100 mg/ Folic Acid 1 mg/ Sodium Chloride 1,011.2 mls @ 100 mls/hr IV ONETIME ONE Stop: 06/02/19 05:06 Last Admin: 06/01/19 20:45 Dose: 100 mls/hr Magnesium Sulfate 4 gm/ Premix 100 mls @ 50 mls/hr IV ONETIME ONE Stop: 06/02/19 09:53 Last Admin: 06/02/19 09:05 Dose: 50 mls/hr Iopamidol (Isovue Multipack-370 (76%)) 100 ml IVPUSH ONETIME STA Stop: 06/01/19 20:31 Last Admin: 06/01/19 20:31 Dose: 100 ml Ketamine HCl (Ketalar) Confirm Administered Dose 500 mg .ROUTE .STK-MED ONE Stop: 06/01/19 14:19 Ketorolac Tromethamine (Toradol) 15 mg IVPUSH Q6H [facility] Stop: 06/06/19 15:32 Last Admin: 06/03/19 03:48 Dose: 15 mg Ketorolac Tromethamine (Toradol) Confirm Administered Dose 30 mg .ROUTE .STK- MED ONE Stop: 06/01/19 15:33 Lidocaine (Xylocaine-Mpf 2%) Confirm Administered Dose 5 ml .ROUTE .STK-MED ONE Stop: 06/01/19 14:19 Lidocaine/Epinephrine (Xylocaine 1% With Epinephrine 1:100,000) Confirm Administered Dose 20 ml .ROUTE .STK-MED ONE Stop: 06/01/19 14:05 Lorazepam (Ativan) 0 mg PO ASDIRECTED [facility]; Protocol Morphine Sulfate (Morphine Down Filler 30 Mg In 30 Ml) 0 mg IV ASDIRECTED [facility]; Protocol Last Admin: 06/02/19 20:43 Dose: 30 mg Pneumococcal Polyvalent Vaccine (Pneumovax 23) 0.5 ml IM .ONCE ONE Stop: 06/01/19 16:46 Last Admin: 06/01/19 20:39 Dose: Not Given Pneumococcal Polyvalent Vaccine (Pneumovax 23) 0.5 ml IM .ONCE ONE Stop: 06/02/19 14:01 Last Admin: 06/02/19 15:20 Dose: 0.5 ml Propofol (Diprivan 20 Ml) Confirm Administered Dose 400 mg .ROUTE .STK-MED ONE Stop: 06/01/19 14:20 - Exam Wound/Incisions: Healing Well, Dressing Dry and Intact General: Alert, Oriented, Cooperative HEENT: Pupils Equal, Pupils Reactive Lungs: Decreased Breath Sounds (to bases bilaterally), Wheezing (expiratory), Other (rhonchi bilaterally) Cardiovascular: Regular Rate, Regular Rhythm GI/Abdominal Exam: Soft, Non-Tender, No Distention, No Mass - Problem List & Annotations (1) Fall SNOMED Code(s): 4953625, 059878375 Code(s): W19.XXXA - UNSPECIFIED FALL, INITIAL ENCOUNTER Status: Acute Current Visit: Yes (2) Pneumothorax SNOMED Code(s): 94331502 Code(s): J93.9 - PNEUMOTHORAX, UNSPECIFIED Status: Acute Current Visit: Yes Qualifiers: Pneumothorax type: unspecified pneumothorax Qualified Code(s): J93.9 - Pneumothorax, unspecified - Problem List Review Problem List Initiated/Reviewed/Updated: Yes - My Orders Last 24 Hours: Active Orders 24 hr Category Date Time Status Transfer Patient (Change bed) [ADT] Routine ADT 06/03/19 08:47 Ordered Acetaminophen/HYDROcodone [[place] 325-5 MG] Med 06/03/19 08:46 Ordered 2 tab PO Q4H PRN Bisacodyl [Dulcolax] Med 06/02/19 09:00 Active 5 mg PO DAILY Heparin Sodium Med 06/02/19 10:45 Active 5,000 units SUBCUT Q12H Ketorolac [Toradol] Med 06/03/19 08:45 Ordered 10 mg PO Q6H Multivitamins [Tab-A-Vickie] Med 06/02/19 09:00 Active 1 tab PO DAILY Polyethylene Glycol 3350 [MiraLAX] Med 06/02/19 09:00 Active 17 gm PO DAILY Sodium Chloride 0.9% [Normal Saline] 1,000 ml Med 06/02/19 11:45 Active IV ASDIRECTED DVT Prophylaxis Not on Coumadin Therapy [AST] Routine Oth 06/02/19 10:35 Ordered Medication Orders Hydrocodone Bitart/Acetaminophen ([place] 325-5 Mg) 2 tab PO Q4H PRN PRN Reason: Pain Albuterol/Ipratropium (Duoneb 3.0-0.5 Mg/3 Ml) 3 ml NEB Q4HRRT [facility] Last Admin: 06/03/19 05:44 Dose: 3 ml Admin: 06/03/19 01:47 Dose: 3 ml Admin: 06/02/19 21:18 Dose: 3 ml Admin: 06/02/19 17:54 Dose: 3 ml Admin: 06/02/19 13:17 Dose: 3 ml Admin: 06/02/19 09:17 Dose: 3 ml Admin: 06/02/19 05:48 Dose: Not Given Admin: 06/02/19 03:49 Dose: 3 ml Admin: 06/02/19 03:02 Dose: Not Given Admin: 06/01/19 21:12 Dose: 3 ml Admin: 06/01/19 18:20 Dose: 3 ml Bisacodyl (Dulcolax) 5 mg PO DAILY [facility] Last Admin: 06/02/19 09:09 Dose: 5 mg Cyclobenzaprine HCl (Flexeril) 5 mg PO TID PRN PRN Reason: Muscle Spasm Diphenhydramine HCl (Benadryl) 25 mg IVPUSH Q6H PRN PRN Reason: Itching Folic Acid (Folic Acid) 1 mg PO DAILY [facility] Last Admin: 06/02/19 09:09 Dose: 1 mg Admin: 06/01/19 19:34 Dose: 1 mg Heparin Sodium (Porcine) (Heparin Sodium) 5,000 units SUBCUT Q12H [facility] Last Admin: 06/02/19 23:03 Dose: 5,000 units Admin: 06/02/19 11:01 Dose: 5,000 units Hydralazine HCl (Apresoline) 10 mg PO Q4H PRN PRN Reason: Hypertension Sodium Chloride (Normal Saline) 1,000 mls @ 25 mls/hr IV ASDIRECTED [facility] Last Admin: 06/02/19 07:00 Dose: 75 mls/hr Sodium Chloride (Normal Saline) 1,000 mls @ 25 mls/hr IV ASDIRECTED [facility] Ketorolac Tromethamine (Toradol) 10 mg PO Q6H [facility] Stop: 06/08/19 08:46 Multivitamins/Minerals/Vitamin C (Tab-A-Vickie) 1 tab PO DAILY [facility] Last Admin: 06/02/19 09:10 Dose: 1 tab Naloxone HCl (Narcan) 0.04 mg IVPUSH Q3M PRN PRN Reason: Respiratory Depression Nicotine (Habitrol) 21 mg TRDERM DAILY [facility] Last Admin: 06/02/19 09:09 Dose: 21 mg Admin: 06/01/19 19:34 Dose: Not Given Ondansetron HCl (Zofran) 4 mg IVPUSH Q6H PRN PRN Reason: Nausea/Vomiting Last Admin: 06/02/19 04:21 Dose: 4 mg Ondansetron HCl (Zofran) 4 mg IVPUSH Q6H PRN PRN Reason: Nausea/Vomiting Polyethylene Glycol (Miralax) 17 gm PO DAILY [facility] Last Admin: 06/02/19 10:48 Dose: 17 gm Promethazine HCl (Phenergan) 25 mg IM Q6H PRN PRN Reason: Nausea Sodium Chloride (Saline Flush) 10 ml FLUSH ASDIRECTED PRN PRN Reason: Keep Vein Open Sodium Chloride (Saline Flush) 2.5 ml FLUSH ASDIRECTED PRN PRN Reason: Keep Vein Open Sodium Chloride (Normal Saline) 10 ml IV ASDIRECTED PRN PRN Reason: IV Use Thiamine HCl (Vitamin B-1) 100 mg PO DAILY [facility] Last Admin: 06/02/19 09:11 Dose: 100 mg Admin: 06/01/19 19:34 Dose: 100 mg - Plan Plan (Free Text/Narrative):: Patient is very comfortable. Her pain medication is controlling her symptoms well. However, will wean off of morphine [employer] today and start oral medications. CXR is stable. Will switch to water seal and recheck CXR this afternoon. Ok to transfer out of ICU. Pain: IV morphine 2mg q 2hr only for severe pain. [place] 325-5mg q4hr prn pain. Scheduled oral toradol 10mg q6hr. Scheduled tylenol D/C with addition of norco. No signs of withdrawl. D/C CIWAA CV: Vitals stable. D/C cardiac monitoring. Pulm: Continue to use IS and encourage OOB activity. Lung sounds are more pronounced on left side today however she has a small productive smokers cough. No concern for pneumonia. Continue scheduled nebulizers. GI: regular diet. Bowel meds scheduled. Renal: UOP adequate. No need for new labs today. Continue daily multivitamin. ID: No need for antibiotics. Heme: No labs this am. Will hold off for now. Px: SCDs, Heparin
[2019-06-03] MEDS: Ketorolac 10 MG Tab PO SCH ×3 (09:21→21:43)
[2019-06-03] MEDS: Bisacodyl 5 MG Tab PO SCH (09:23)
[2019-06-03] MEDS: Folic Acid 1 MG Tab PO SCH (09:24)
[2019-06-03] MEDS: Nicotine 21 MG/24 Hr Patch TRDERM SCH (09:24)
[2019-06-03] MEDS: Multivitamin Tab PO SCH (09:28)
[2019-06-03] MEDS: Polyethylene Glycol 3350 Powder 17 GM Packet PO SCH (09:28)
[2019-06-03] MEDS: Thiamine 100 MG Tab PO SCH (09:28)
[2019-06-03] MEDS: Acetaminophen/HYDROcodone 325-5 MG Tab PO PRN ×3 (09:49→18:55)
[2019-06-03] MEDS ORDERED: Morphine 2 MG/ML Syringe IVPUSH PRN (10:30)
[2019-06-03] MEDS: Heparin Sodium 5,000 Units/ML Vial SUBCUT SCH ×2 (11:00→21:50)
--- NOTE | 2019-06-03 15:12 | CR ---
Indication: Chest tube to water seal. Technique: A single AP portable view of the chest was obtained. Comparison: Study from earlier in the same day. The current studies dated 1456 hours. Findings: Subcutaneous emphysema is identified on the left. A left-sided chest tube is present. No definite left-sided pneumothorax is identified. The heart is normal in size. The right lung is clear. Impression: No definite left-sided pneumothorax. Dictated by Ingris Giles MD @ Jun 03 2019 3:10PM Signed by Dr. Ingris Giles @ Jun 03 2019 3:11PM
[2019-06-04] MEDS: Ketorolac 10 MG Tab PO SCH ×3 (02:35→13:49)
[2019-06-04] MEDS: Albuterol/Ipratropium 3.0-0.5 MG/3 ML Neb Soln NEB SCH ×3 (02:35→09:35)
--- NOTE | 2019-06-04 08:19 | CR ---
INDICATION: Chest tube removal on 06/03/2019. TECHNIQUE: Single view of the chest. COMPARISON: 06/03/2019. FINDINGS: Interval removal of left chest tube. Left-sided subcutaneous emphysema is again noted. Blunting of the costophrenic angles bilaterally could be due to small pleural effusions. Cardiomediastinal silhouette is stable. Basilar atelectasis is similar to prior exam. No significant pneumothorax is identified. IMPRESSION: Interval movable of left chest tube. Additional stable findings as above. No significant pneumothorax identified. Dictated by Giovanny Stacy MD @ Jun 04 2019 8:14AM Signed by Dr. Giovanny Stacy @ Jun 04 2019 8:17AM
--- NOTE | 2019-06-04 09:01 | PCM.DCSUM1 ---
Discharge Summary - Hospital Course Free Text/Narrative:: Patient is a 69 year old female who presented to the ER with a 6th rib fracture and a traumatic pneumothorax one day after a fall at home. She underwent placement of a left sided chest tube with good resolution of her pneumothorax. She had a large amount of subcutaneous emphysema which stayed stable. She remained stable post operatively with no acute issues. After one day her chest tube was placed on water seal. There was no re-accumulation of her pneumothorax so her chest tube was removed. Her post removal CXR showed no new pneumothorax. Her pain is well controlled on scheduled toradol and prn norco. She will be weaned off oxygen. Vitals are stable. She will be discharged home. - Discharge Data Discharge Date: 06/04/19 Discharge Disposition: Home, Self-Care 01 Condition: Fair - Referral to Home Health Primary Care Physician: PCP Unknown - Discharge Diagnosis/Problem(s) (1) Fall SNOMED Code(s): 5477334, 171061168 ICD Code: W19.XXXA - UNSPECIFIED FALL, INITIAL ENCOUNTER Status: Acute Current Visit: Yes (2) Pneumothorax SNOMED Code(s): 16337586 ICD Code: J93.9 - PNEUMOTHORAX, UNSPECIFIED Status: Acute Current Visit: Yes Qualifiers: Pneumothorax type: unspecified pneumothorax Qualified Code(s): J93.9 - Pneumothorax, unspecified - Patient Summary/Data Operative Procedure(s) Performed: Left chest tube placement - Patient Instructions Diet: Regular Diet as Tolerated Activity: No Lifting Over 20 Pounds (for one month ), Rest and Relax Today Driving: Do Not Drive (while on narcotics ) Showering/Bathing: May Shower Notify Provider of: Fever, Increased Pain, Nausea and/or Vomiting Other/Special Instructions: Come back immediately for any prolonged shortness of breath. Follow up with PCP this week to get refills of COPD medications. - Discharge Plan *PRESCRIPTION DRUG MONITORING PROGRAM REVIEWED*: Yes *COPY OF PRESCRIPTION DRUG MONITORING REPORT IN PATIENT OTIS: Yes Prescriptions/Med Rec: Sennosides [Laxative] 15 mg PO DAILY #14 tablet Home Medications: Home Meds Albuterol [Ventolin HFA] 2 inh IH Q4H PRN 06/01/19 [History] Budesonide/Formoterol [Symbicort 160-4.5 MCG] 2 inh IH BID 06/01/19 [History] Olmesartan [Benicar] 20 mg PO DAILY 06/01/19 [History] amLODIPine Besylate [Amlodipine Besylate] 5 mg PO DAILY 06/01/19 [History] atorvaSTATin Calcium [Atorvastatin Calcium] 20 mg PO DAILY 06/01/19 [History] buPROPion HCl [Wellbutrin SR] 150 mg PO BID 06/01/19 [History] Nicotine [Habitrol] 21 mg TRDERM DAILY patch 06/04/19 [Rx] Sennosides [Laxative] 15 mg PO DAILY #14 tablet 06/04/19 [Rx] Patient Handouts: Senna tablets or capsules Referrals: Ifeoma Simpson MD [Physician] - 06/08/19 - Discharge Summary/Plan Comment DC Time >30 min.: No - General Info Functional Status: Reports: Pain Controlled, Tolerating Diet, Ambulating, Incentive Spirometry. Denies: New Symptoms - Review of Systems General: Reports: No Symptoms HEENT: Reports: No Symptoms Pulmonary: Reports: No Symptoms Cardiovascular: Reports: No Symptoms Gastrointestinal: Reports: No Symptoms - Patient Data Vitals - Most Recent: Last Vital Signs Temp 36.5 C 06/04/19 08:00 Pulse 75 06/04/19 08:15 Resp 18 06/04/19 08:15 BP 173/80 H 06/04/19 08:15 Pulse Ox 95 06/04/19 08:15 Weight - Most Recent: 55.792 kg I&O - Last 24 hours: Intake & Output 06/03/19 06/04/19 06/04/19 22:59 06:59 14:59 Intake Total 938 350 Output Total 550 500 Balance 388 -150 TOMMY Results - Last 24 hrs: Microbiology 06/01/19 17:13 Urine Culture - Final Urine, Clean Catch Escherichia Coli Med Orders - Current: Current Medications Hydrocodone Bitart/Acetaminophen ([place] 325-5 Mg) 2 tab PO Q4H PRN PRN Reason: Pain Last Admin: 06/03/19 18:55 Dose: 2 tab Albuterol/Ipratropium (Duoneb 3.0-0.5 Mg/3 Ml) 3 ml NEB Q4HRRT [facility] Last Admin: 06/04/19 05:59 Dose: 3 ml Bisacodyl (Dulcolax) 5 mg PO DAILY [facility] Last Admin: 06/03/19 09:23 Dose: 5 mg Cyclobenzaprine HCl (Flexeril) 5 mg PO TID PRN PRN Reason: Muscle Spasm Diphenhydramine HCl (Benadryl) 25 mg IVPUSH Q6H PRN PRN Reason: Itching Folic Acid (Folic Acid) 1 mg PO DAILY [facility] Last Admin: 06/03/19 09:24 Dose: 1 mg Heparin Sodium (Porcine) (Heparin Sodium) 5,000 units SUBCUT Q12H [facility] Last Admin: 06/03/19 21:50 Dose: 5,000 units Hydralazine HCl (Apresoline) 10 mg PO Q4H PRN PRN Reason: Hypertension Ketorolac Tromethamine (Toradol) 10 mg PO Q6H [facility] Stop: 06/08/19 08:46 Last Admin: 06/04/19 02:35 Dose: 10 mg Morphine Sulfate (Morphine) 2 mg IVPUSH Q2H PRN PRN Reason: Pain (severe 7-10) Multivitamins/Minerals/Vitamin C (Tab-A-Vickie) 1 tab PO DAILY [facility] Last Admin: 06/03/19 09:28 Dose: 1 tab Naloxone HCl (Narcan) 0.04 mg IVPUSH Q3M PRN PRN Reason: Respiratory Depression Nicotine (Habitrol) 21 mg TRDERM DAILY [facility] Last Admin: 06/03/19 09:24 Dose: 21 mg Ondansetron HCl (Zofran) 4 mg IVPUSH Q6H PRN PRN Reason: Nausea/Vomiting Last Admin: 06/02/19 04:21 Dose: 4 mg Ondansetron HCl (Zofran) 4 mg IVPUSH Q6H PRN PRN Reason: Nausea/Vomiting Polyethylene Glycol (Miralax) 17 gm PO DAILY [facility] Last Admin: 06/03/19 09:28 Dose: 17 gm Promethazine HCl (Phenergan) 25 mg IM Q6H PRN PRN Reason: Nausea Sodium Chloride (Saline Flush) 10 ml FLUSH ASDIRECTED PRN PRN Reason: Keep Vein Open Sodium Chloride (Saline Flush) 2.5 ml FLUSH ASDIRECTED PRN PRN Reason: Keep Vein Open Thiamine HCl (Vitamin B-1) 100 mg PO DAILY [facility] Last Admin: 06/03/19 09:28 Dose: 100 mg Discontinued Medications Acetaminophen (Tylenol) 650 mg PO Q6H [facility] Last Admin: 06/01/19 18:56 Dose: Not Given Acetaminophen (Tylenol) 650 mg PO Q6H [facility] Last Admin: 06/03/19 06:45 Dose: 650 mg Albuterol/Ipratropium (Duoneb 3.0-0.5 Mg/3 Ml) 3 ml NEB ONETIME ONE Stop: 06/01/19 12:52 Last Admin: 06/01/19 12:56 Dose: 3 ml Cefazolin Sodium (Ancef) Confirm Administered Dose 1 gm .ROUTE .STK-MED ONE Stop: 06/01/19 14:51 Diphenhydramine HCl (Benadryl) 25 mg PO Q6H PRN PRN Reason: Itching Fentanyl (Sublimaze) Confirm Administered Dose 100 mcg .ROUTE .STK-MED ONE Stop: 06/01/19 15:24 Last Admin: 06/01/19 17:52 Dose: Not Given Sodium Chloride (Normal Saline) 1,000 mls @ 25 mls/hr IV ASDIRECTED [facility] Last Admin: 06/02/19 07:00 Dose: 75 mls/hr Multivitamins/Minerals 10 ml/Thiamine HCl 100 mg/ Folic Acid 1 mg/ Sodium Chloride 1,011.2 mls @ 100 mls/hr IV ONETIME ONE Stop: 06/02/19 05:06 Last Admin: 06/01/19 20:45 Dose: 100 mls/hr Magnesium Sulfate 4 gm/ Premix 100 mls @ 50 mls/hr IV ONETIME ONE Stop: 06/02/19 09:53 Last Admin: 06/02/19 09:05 Dose: 50 mls/hr Sodium Chloride (Normal Saline) 1,000 mls @ 25 mls/hr IV ASDIRECTED [facility] Iopamidol (Isovue Multipack-370 (76%)) 100 ml IVPUSH ONETIME STA Stop: 06/01/19 20:31 Last Admin: 06/01/19 20:31 Dose: 100 ml Ketamine HCl (Ketalar) Confirm Administered Dose 500 mg .ROUTE .STK-MED ONE Stop: 06/01/19 14:19 Ketorolac Tromethamine (Toradol) 15 mg IVPUSH Q6H [facility] Stop: 06/06/19 15:32 Last Admin: 06/03/19 03:48 Dose: 15 mg Ketorolac Tromethamine (Toradol) Confirm Administered Dose 30 mg .ROUTE .STK- MED ONE Stop: 06/01/19 15:33 Lidocaine (Xylocaine-Mpf 2%) Confirm Administered Dose 5 ml .ROUTE .STK-MED ONE Stop: 06/01/19 14:19 Lidocaine/Epinephrine (Xylocaine 1% With Epinephrine 1:100,000) Confirm Administered Dose 20 ml .ROUTE .STK-MED ONE Stop: 06/01/19 14:05 Lorazepam (Ativan) 0 mg PO ASDIRECTED [facility]; Protocol Morphine Sulfate (Morphine Chamber Walker 30 Mg In 30 Ml) 0 mg IV ASDIRECTED [facility]; Protocol Last Admin: 06/02/19 20:43 Dose: 30 mg Pneumococcal Polyvalent Vaccine (Pneumovax 23) 0.5 ml IM .ONCE ONE Stop: 06/01/19 16:46 Last Admin: 06/01/19 20:39 Dose: Not Given Pneumococcal Polyvalent Vaccine (Pneumovax 23) 0.5 ml IM .ONCE ONE Stop: 06/02/19 14:01 Last Admin: 06/02/19 15:20 Dose: 0.5 ml Propofol (Diprivan 20 Ml) Confirm Administered Dose 400 mg .ROUTE .STK-MED ONE Stop: 06/01/19 14:20 Sodium Chloride (Normal Saline) 10 ml IV ASDIRECTED PRN PRN Reason: IV Use - Exam Quality Assessment: Reports: Supplemental Oxygen General: Reports: Alert, Oriented HEENT: Reports: Pupils Equal, Pupils Reactive Lungs: Reports: Other (Crepitus on left side of chest. She has clear breath sounds on the left side, but diminshed breath sounds bilaterally consistent with COPD. ) Cardiovascular: Reports: Regular Rate, Regular Rhythm GI/Abdominal Exam: Soft, Non-Tender, No Distention, No Mass
[2019-06-04] MEDS: Multivitamin Tab PO SCH (09:33)
[2019-06-04] MEDS: Folic Acid 1 MG Tab PO SCH (09:33)
[2019-06-04] MEDS: Bisacodyl 5 MG Tab PO SCH (09:33)
[2019-06-04] MEDS: Thiamine 100 MG Tab PO SCH (09:33)
[2019-06-04] MEDS: Polyethylene Glycol 3350 Powder 17 GM Packet PO SCH (09:33)
[2019-06-04] MEDS: Nicotine 21 MG/24 Hr Patch TRDERM SCH (09:34)
[2019-06-04] MEDS: hydrALAZINE 10 MG Tab PO PRN ×2 (09:35→16:08)
[2019-06-04] MEDS: Heparin Sodium 5,000 Units/ML Vial SUBCUT SCH (10:37)
[2019-06-04] MEDS: Acetaminophen/HYDROcodone 325-5 MG Tab PO PRN (16:07)
[2019-06-04 17:23] VITALS: BP 178/81; PULSE 86
== END 2019-06-04 18:10 | disposition home or self-care (01) | DRG 201 ==
LOC: MW.ED 11:56 → MW.SDS 13:44 → MW.ICU 16:03 → MW.MS 06-03 19:31
PROVIDERS: ADMIT Surgery; ATTEND Surgery
DX: S27.0XXA Traumatic pneumothorax, initial encounter (principal); J44.9 Chronic obstructive pulmonary disease, unspecified; F17.210 Nicotine dependence, cigarettes, uncomplicated; M25.561 Pain in right knee; F10.20 Alcohol dependence, uncomplicated; F12.10 Cannabis abuse, uncomplicated; Z79.51 Long term (current) use of inhaled steroids; I10 Essential (primary) hypertension; Z79.899 Other long term (current) drug therapy; Z23 Encounter for immunization; W01.0XXA Fall on same level from slipping, tripping and stumbling without subsequent striking against object, initial encounter; G89.29 Other chronic pain; M54.9 Dorsalgia, unspecified; Z91.012 Allergy to eggs
CPT/HCPCS: 32551; 36415; 71045; 71101; 71260; 72170; 73562; 74177; 80053; 85025; 85610; 85730; 87088; 93005; 94640; 99285; G0480; J0690; J1885; J2001; J2704; 00520; 70450; 70450-26; 80048; 81001; 83735; 84100; 85027; 87086; 87186; 90471; 90732; A9270-GY; G0009; J1644; J2274; J2405; J3411; J3475; J7040; J7620-GY; Q9967

== ENCOUNTER 2024-12-07 11:01 | Emergency (ER) | payer MEDICARE, MEDICAID ==
[2024-12-07 11:24] LABS: BASOPHILS ABSOLUTE AUTO 0.03 K/uL (0.00-0.20); BASOPHILS PERCENT AUTO 0.4 % (0.0-1.0); EOSINOPHILS ABSOLUTE AUTO 0.24 K/uL (0.00-0.45); EOSINOPHILS PERCENT AUTO 3.3 % (0.0-6.0); HEMATOCRIT 35.1 % (37.0-47.0); IMMATURE GRAN ABSOLUTE AUTO 0.05 K/uL (0.00-0.05); IMMATURE GRAN PERCENT AUTO 0.7 % (0.0-0.4); LYMPHOCYTES PERCENT AUTO 8.1 % (24.0-44.0); MEAN CORPUSCULAR HEMOGLOBIN 32.1 pg (28.0-32.0); MEAN CORPUSCULAR HGB CONC 31.3 g/dL (32.0-36.0); MEAN CORPUSCULAR VOLUME 102.3 fL (83.0-99.0); MEAN PLATELET VOLUME 9.3 fL (9.4-12.3); MONOCYTES ABSOLUTE AUTO 0.64 K/uL (0.00-0.80); MONOCYTES PERCENT AUTO 8.7 % (0.0-8.0); NEUTROPHILS ABSOLUTE AUTO 5.81 K/uL (1.80-7.70); NEUTROPHILS PERCENT AUTO 78.8 % (41.0-71.0); PLATELET COUNT,PLT 190 K/uL (150-400); RED BLOOD CELL COUNT 3.43 M/uL (4.10-5.30); WHITE BLOOD CELL COUNT,WBC 7.37 K/uL (3.9-11.3)
[2024-12-07] MEDS: methylPREDNISolone Sodium Succinate 125 MG/2 ML SDV IVPUSH ONE (11:27)
[2024-12-07] MEDS: cefTRIAXone 2 GM in Sodium Chloride 0.9% 50 ML IV ONE (11:28)
[2024-12-07] MEDS: Albuterol/Ipratropium 3.0-0.5 MG/3 ML Neb Soln NEB ONE (11:28)
[2024-12-07] MEDS: Sodium Chloride 0.9% 1,000 ML IV ONE (11:34)
[2024-12-07] MEDS: hydrALAZINE 20 MG/ML SDV IVPUSH ONE ×2 (11:35→13:14)
[2024-12-07 12:05] LABS: A/G RATIO 0.7 (0.9-1.6); ALBUMIN 3.2 g/dL (3.4-5.0); BILIRUBIN DIRECT 0.1 mg/dL (0.0-0.5); BILIRUBIN INDIRECT 0.2; BILIRUBIN TOTAL 0.3 mg/dL (0.2-1.0); CALCIUM 9.3 mg/dL (8.5-10.1); CARBON DIOXIDE,CO2 33.4 mmol/L (21.0-32.0); CREATININE 0.9 mg/dL (0.6-1.0); EST CRCL DRUG DOSING (CG) 42.48 mL/min; PROTEIN TOTAL,TP 7.5 g/dL (6.4-8.2)
[2024-12-07 13:37] LABS: PH,VENOUS 7.29 (7.32-7.43)
[2024-12-07 13:39] LABS: BASE EXCESS VENOUS 3.4 (-2.0-3.0)
[2024-12-07 16:57] VITALS: BP 178/79; PULSE 90
== END 2024-12-07 18:30 | disposition critical access hospital (66) ==
LOC: MW.ED 11:01
DX: J44.1 Chronic obstructive pulmonary disease with (acute) exacerbation (principal); I10 Essential (primary) hypertension; Z91.012 Allergy to eggs; Z79.51 Long term (current) use of inhaled steroids; Z79.899 Other long term (current) drug therapy
CPT/HCPCS: 36415; 71045; 80048; 80076; 82803; 83605; 84484; 85025; 87040; 87428; 93005; 94640; 94660; 96361; 96365; 96375; 96376; 99285; A9270; J0360; J0696; J2919; J7030

== ENCOUNTER 2024-12-11 09:10 | Emergency (ER) | payer MEDICARE, MEDICAID ==
[~2024-12-11 09:10] MED LIST changes: -Albuterol 0.083% 2.5 MG/3 ML Neb Soln NEB ONE; +propofoL 1,000 MG/100 ML 100 ML ONE
[2024-12-11] MEDS ORDERED: Sodium Chloride 0.9% 10 ML Syringe FLUSH PRN (09:14)
[2024-12-11] MEDS ORDERED: Sodium Chloride 0.9% 2.5 ML Syringe FLUSH PRN (09:14)
[2024-12-11] MEDS ORDERED: Sodium Chloride 0.9% 20 ML SDV IV PRN (09:14)
[2024-12-11] MEDS: propofoL 1,000 MG/100 ML 100 ML IV SCH ×2 (09:19→13:24)
[2024-12-11 09:35] LABS: BASE EXCESS ARTERIAL 3.4 (-2.0-3.0); BICARBONATE,ARTERIAL 30 mEq/L (21-28); PCO2 ARTERIAL 51 mmHG (35-45); PO2 ARTERIAL 217 mmHG (83-108)
[2024-12-11] MEDS: Albuterol/Ipratropium 3.0-0.5 MG/3 ML Neb Soln NEB ONE ×3 (09:44→11:46)
[2024-12-11] MEDS: Midazolam 5 MG/ML SDV IVPUSH ONE ×2 (09:56→11:09)
[2024-12-11 09:58] LABS: APPEARANCE,URINE CLEAR; BILIRUBIN,URINE NEGATIVE (NEGATIVE); COLOR,URINE YELLOW; GLUCOSE,URINE 100 mg/dL (NEGATIVE); KETONES,URINE NEGATIVE (NEGATIVE); LEUKOCYTE ESTERASE,URINE NEGATIVE (NEGATIVE); NITRITE,URINE NEGATIVE (NEGATIVE); OCCULT BLOOD,URINE TRACE-INTACT (NEGATIVE); PH,URINE 5.5 (5.0-8.0); PROTEIN,URINE 100 mg/dL (NEGATIVE); UROBILINOGEN,URINE 0.2 EU/dL (<2.0)
[2024-12-11 09:59] LABS: HEMATOCRIT 34.8 % (37.0-47.0); HEMOGLOBIN 11.1 g/dL (12.0-16.0); MEAN CORPUSCULAR HEMOGLOBIN 32.9 pg (28.0-32.0); MEAN CORPUSCULAR HGB CONC 31.9 g/dL (32.0-36.0); MEAN CORPUSCULAR VOLUME 103.3 fL (83.0-99.0); MEAN PLATELET VOLUME 9.5 fL (9.4-12.3); PLATELET COUNT,PLT 159 K/uL (150-400); RED BLOOD CELL COUNT 3.37 M/uL (4.10-5.30); WHITE BLOOD CELL COUNT,WBC 13.78 K/uL (3.9-11.3)
[2024-12-11 10:23] LABS: BACTERIA,URINE FEW (NEGATIVE); EPITHELIAL CELLS,URINE FEW (NONE-FEW); RBC,URINE 0-2 (0-2/HPF); WBC,URINE 0-3 (0-5/HPF)
[2024-12-11] MEDS: cefTRIAXone 1 GM in Sodium Chloride 0.9% 50 ML IV ONE (10:31)
[2024-12-11] MEDS: methylPREDNISolone Sodium Succinate 125 MG/2 ML SDV IVPUSH ONE (10:31)
[2024-12-11 10:38] LABS: A/G RATIO 0.8 (0.9-1.6); ALBUMIN 3.2 g/dL (3.4-5.0); BILIRUBIN TOTAL 0.5 mg/dL (0.2-1.0); CALCIUM 9.1 mg/dL (8.5-10.1); CARBON DIOXIDE,CO2 29.3 mmol/L (21.0-32.0); EST CRCL DRUG DOSING (CG) 40.22 mL/min; MAGNESIUM 2.3 mg/dL (1.8-2.4); POTASSIUM,K 5.9 mmol/L (3.5-5.1)
[2024-12-11 10:43] LABS: LACTIC ACID 1.7 mmol/L (0.4-2.0)
[2024-12-11 11:13] LABS: EOSINOPHILS ABSOLUTE MAN 0.14 K/uL (0.00-0.45); EOSINOPHILS PERCENT MAN 1 % (0-6); LYMPHOCYTES ABSOLUTE MAN 0.69 K/uL (1.00-4.80); LYMPHOCYTES PERCENT MAN 5 % (24-44); MONOCYTES ABSOLUTE MAN 1.93 K/uL (0.00-0.80); MONOCYTES PERCENT MAN 14 % (0-8); SEG NEUTROPHILS ABSOLUTE MAN 11.02 K/uL (1.80-7.70); SEG NEUTROPHILS PERCENT MAN 80 % (41-71)
[2024-12-11 11:20] LABS: INR 0.97 (0.86-1.11); PTT,PARTIAL THROMBOPLSTIN TIME 22.2 SEC (23.9-30.7)
[2024-12-11] MEDS: fentaNYL 100 MCG/2 ML SDV IVPUSH ONE ×2 (11:45→14:04)
[2024-12-11 12:25] LABS: CORONAVIRUS COVID-19 NAA NEGATIVE (NEGATIVE); INFLUENZA A NAA NEGATIVE (NEGATIVE); INFLUENZA B NAA NEGATIVE (NEGATIVE); RESPIRATORY SYNCYTIAL VIR NAA NEGATIVE (NEGATIVE)
[2024-12-11] MEDS: Furosemide 40 MG/4 ML VIAL IVPUSH ONE ×2 (12:54→14:55)
[2024-12-11] MEDS: Doxycycline 100 MG in Sodium Chloride 0.9% 100 ML IV ONE (13:55)
[2024-12-11] MEDS: Sodium Chloride 0.9% 500 ML IV SCH (15:22)
[2024-12-11 15:25] VITALS: BP 181/96; PULSE 55
== END 2024-12-11 15:30 ==
LOC: MW.ED 09:10
DX: J96.90 Respiratory failure, unspecified, unspecified whether with hypoxia or hypercapnia (principal); J44.9 Chronic obstructive pulmonary disease, unspecified; I11.0 Hypertensive heart disease with heart failure; I50.9 Heart failure, unspecified; Z91.012 Allergy to eggs; Z79.51 Long term (current) use of inhaled steroids; Z79.899 Other long term (current) drug therapy
CPT/HCPCS: 0241U; 36415; 36600; 51702; 70450; 71045; 80053; 81001; 82550; 82803; 83605; 83735; 83880; 84484; 85025; 85610; 85730; 87040; 93005; 96365; 96366; 96368; 96375; 96376; 99285; A9270; J0696; J1940; J2250; J2704; J2919; J3010; J3490; J7040; 93010